=== PATIENT | female | born 1970 | race African-American/Black ===

== ENCOUNTER 2017-02-23 13:23 | Inpatient (IN) | payer OTHER ==
[2017-02-23 13:49] VITALS: BMI 29.8
--- NOTE | 2017-02-23 14:18 | HP ---
COWS - Scale Resting Pulse: 0= [place] 80 or Below Sweatin= Chills/Flushing Restless Observation: 1= Difficult to Sit Still Pupil Size: 0= Normal to Room Light Bone or Joint Aches: 1= Mild Discomfort Runny Nose/ Eye Tearin= Nasal Congestion GI Upset > 30mins: 1= Stomach Cramp Tremor Observation: 1= Tremor [place], Not Seen Yawning Observation: 1= 1-2x During Session Anxiety or Irritability: 1=Feels Anxious/Irritable Goose Flesh Skin: 0=Smooth Skin COWS Score: 8 CIWA Score - CIWA Score Nausea/Vomitin-Mild Nausea/No Vomiting Muscle Tremors: 4-Moderate,w/Arms Extend Anxiety: 3 Agitation: 1-Slight > Activity Paroxysmal Sweats: 1-Minimal Palms Moist Orientation: 1-Uncertain about Date Tacttile Disturbances: 1-Very Mild Itch/Numbness Auditory Disturbances: 1-Very Mild Visual Disturbances: 1-Very Mild Sensitivity Headache: 2-Mild CIWA-Ar Total Score: 16 Admission ROS [facility] - HPI Chief Complaint: I'm tired, I need to stop Allergies/Adverse Reactions: Allergies Allergy/AdvReac Type Severity Reaction Status Date / Time lisinopril Allergy Mild Swelling Verified 02/23/17 14:15 History of Present Illness: 46 yo woman here for detox from alcohol and percocet dependence. Previously here in 2013 - did well but relapsed a year ago. One alcohol related seizure years ago, does have black outs. Exam Limitations: Clinical Condition - Ebola screening Have you traveled outside of the country in the last 21 days: No Have you had contact with anyone from an Ebola affected area: No Have you been sick,other than usual withdrawal symptoms: No Do you have a fever: No - Review of Systems Constitutional: Loss of Appetite, Malaise EENT: reports: Blurred Vision, Nose Congestion Respiratory: reports: No Symptoms reported Cardiac: reports: No Symptoms Reported GI: reports: Nausea, Poor Appetite, Indigestion : reports: Dysuria Musculoskeletal: reports: Back Pain, Muscle Pain Integumentary: reports: No Symptoms Reported Neuro: reports: Headache Endocrine: reports: No Symptoms Reported Psychiatric: reports: Judgement Intact, Mood/Affect Appropiate, Anxious Other Systems: Reviewed and Negative Patient History - Patient Medical History Hx Anemia: No Hx Asthma: No Hx Chronic Obstructive Pulmonary Disease (COPD): No Hx Cancer: No Hx Cardiac Disorders: No Hx Congestive Heart Failure: No Hx Hypertension: No Hx Hypercholesterolemia: No Hx Pacemaker: No HX Cerebrovascular Accident: No Hx Seizures: Yes (years ago relate to Alcohol) Hx Dementia: No Hx Diabetes: No Hx Gastrointestinal Disorders: Yes (GERD) Hx Liver Disease: No Hx Genitourinary Disorders: No Hx Sexually Transmitted Disorders: No Hx Renal Disease (ESRD): No Hx Thyroid Disease: No Hx Human Immunodeficiency Virus (HIV): No Hx Hepatitis C: No Hx Depression: Yes (past history) Hx Suicide Attempt: No Hx Schizophrenia: No Other Medical History: eczema - Patient Surgical History Past Surgical History: Yes Hx Neurologic Surgery: No Hx Cataract Extraction: No Hx Cardiac Surgery: No Hx Lung Surgery: No Hx Breast Surgery: No Hx Breast Biopsy: No Hx Abdominal Surgery: No Hx Appendectomy: No Hx Cholecystectomy: No Hx Genitourinary Surgery: No Hx Section: No Hx Orthopedic Surgery: Yes (left knee arthroscopy) Anesthesia Reaction: No - PPD History Previous Implant?: Yes Documented Results: Negative w/proof Date: 07/14/12 Results: 0 mm PPD to be Administered?: Yes - Reproductive History Patient is a Female of Child Bearing Age (11 -55 yrs old): Yes Last Menstrual Period: 01/02/12 Patient : No - Smoking Cessation Smoking history: Current every day smoker Have you smoked in the past 12 months: Yes Aproximately how many cigarettes per day: 6 Hx Chewing Tobacco Use: No Initiated information on smoking cessation: Yes 'Breaking Loose' booklet given: 02/23/17 (give on floor) - Substance & Tx. History Hx Alcohol Use: Yes Hx Substance Use: Yes Substance Use Type: Alcohol, Cocaine, Opiates Hx Substance Use Treatment: Yes (detox, rehab) - Substances Abused percocet Route: Oral Frequency: Daily Amount used: ten 5mg pills Age of first use: 45 Date of Last Use: 02/23/17 Cocaine Route: Smoking Frequency: Daily Amount used: 1gm Age of first use: 45 Date of Last Use: 02/22/17 Alcohol Route: Oral Frequency: Daily Amount used: 12 pack of 16oz beer; 1/2 - 1 gallon [place] Age of first use: 16 Date of Last Use: 02/23/17 Family Disease History - Family Disease History Family Disease History: Diabetes: Father (, etoh), Heart Disease: Mother (, etoh/drugs), Other: Father, Mother, Brother (1 -DC ) , Sister (2 - living - one with HTN), Daughter (age 23 - healthy) Admission Physical Exam [facility] - Vital Signs Vital Signs: Vital Signs - 24 hr 02/23/17 13:47 Temperature 96 F L Pulse Rate 77 Respiratory 20 Rate Blood Pressure 138/90 - Physical General Appearance: Yes: Nourished, Appropriately Dressed, Moderate Distress, Anxious HEENTM: Yes: Hearing grossly Normal, Normal ENT Inspection, Normocephalic, Normal Voice, Pharynx Normal Respiratory: Yes: Normal Breath Sounds, No Respiratory Distress Neck: Yes: No masses,lesions,Nodules, Supple Breast: Yes: Breast Exam Deferred Cardiology: Yes: Regular Rhythm, Regular Rate Abdominal: Yes: Soft Genitourinary: Yes: Dysuria Back: Yes: Normal Inspection Musculoskeletal: Yes: full range of Motion, Gait Steady Neurological: Yes: Alert, Normal Mood/Affect, Normal Response Integumentary: Yes: Normal Color, Warm Lymphatic: Yes: Within Normal Limits - Diagnostic (1) Uncomplicated opioid dependence Current Visit: Yes Status: Chronic (2) Alcohol dependence with uncomplicated withdrawal Current Visit: Yes Status: Chronic (3) Cocaine dependence Current Visit: Yes Status: Chronic Qualifiers: Substance use status: uncomplicated Qualified Code(s): F14.20 - Cocaine dependence, uncomplicated (4) Eczema Current Visit: Yes Status: Chronic Qualifiers: Eczema type: other Qualified Code(s): L30.8 - Other specified dermatitis (5) GERD (gastroesophageal reflux disease) Current Visit: Yes Status: Chronic Qualifiers: Esophagitis presence: esophagitis presence not specified Qualified Code(s): K21.9 - Gastro-esophageal reflux disease without esophagitis (6) HTN (hypertension) Current Visit: Yes Status: Chronic Qualifiers: Hypertension type: essential hypertension Qualified Code(s): I10 - Essential (primary) hypertension (7) History of seizure Current Visit: Yes Status: Chronic Comment: years ago, alcohol related Cleared for Admission [facility] - Detox or Rehab [facility] Level of Care: Medically Managed Detox Regimen/Protocol: Methadone/Librium [facility] Breath Alcohol Content Breath Alcohol Content: 0.030 Urine Pregancy Test - Result Urine Test Results: Negative- NO Line Present Urine Drug Screen - Results Drug Screen Negative: No Urine Drug Screen Results: SHONA-Cocaine, OXY-Oxycodone
[2017-02-23] MEDS ORDERED: chlordiazePOXIDE HCL 25 MG CAPSULE PO PRN (14:29)
[2017-02-23] MEDS ORDERED: IBUPROFEN 400 MG TABLET (FP) PO PRN (14:29)
[2017-02-23] MEDS ORDERED: MAGNESIUM CITRATE 300 ML BOTTLE PO PRN (14:29)
[2017-02-23] MEDS ORDERED: guaiFENesin/D-METHORPHAN HB 10 ML UNIT-DOSE CUPS PO PRN (14:29)
[2017-02-23] MEDS ORDERED: hydrOXYzine PAMOATE 50 MG CAPSULE (FP) PO PRN (14:29)
[2017-02-23] MEDS ORDERED: MENTHOL/PHENOL 1 EACH UD MM PRN (14:29)
[2017-02-23] MEDS ORDERED: ACETAMINOPHEN 325 MG TABLET (FP) PO PRN (14:29)
[2017-02-23] MEDS ORDERED: MAGNESIUM HYDROX 2400MG/30ML ORAL SUSPENSION 30 ML CUP PO PRN (14:29)
[2017-02-23] MEDS ORDERED: LOPERAMIDE HCL 2 MG CAPSULE PO PRN (14:29)
[2017-02-23] MEDS ORDERED: P-EPHED 60MG/TRIPROLIDI 2.5MG TABLET PO PRN (14:29)
[2017-02-23] MEDS ORDERED: chlordiazePOXIDE HCL 25 MG CAPSULE PO ONE (14:29)
[2017-02-23] MEDS ORDERED: COLLOIDAL OATMEAL 1 BAR EACH TP PRN (14:31)
[2017-02-23] MEDS ORDERED: METHADONE HCL 10 MG TABLET (FOR DETOX USE ONLY) PO ONE ×3 (15:15→23:00)
[2017-02-23] MEDS: chlordiazePOXIDE HCL 25 MG CAPSULE PO SCH ×2 (17:48→22:26)
[2017-02-23] MEDS: NICOTINE POLACRILEX 4 MG GUM BUC PRN (19:25)
[2017-02-23] MEDS: THIAMINE HCL 100 MG TABLET (FP) PO SCH (22:27)
[2017-02-23] MEDS: diphenhydrAMINE HCL 50 MG CAPSULE PO PRN (22:28)
[2017-02-23 22:30] LABS: URINE APPEARANCE CLEAR; URINE BILIRUBIN NEGATIVE (NEGATIVE); URINE BLOOD NEGATIVE (NEGATIVE); URINE COLOR STRAW; URINE GLUCOSE (UA) NEGATIVE (NEGATIVE); URINE KETONE NEGATIVE (NEGATIVE); URINE LEUK ESTERASE NEGATIVE (NEGATIVE); URINE NITRITE NEGATIVE (NEGATIVE); URINE PROTEIN NEGATIVE (NEGATIVE); URINE UROBILINOGEN NEGATIVE mg/dL (0.2-1.0)
[2017-02-24] MEDS: chlordiazePOXIDE HCL 25 MG CAPSULE PO SCH ×4 (06:08→22:08)
[2017-02-24 09:52] LABS: MCH 28.2 pg (25.7-33.7); MCHC 32.7 g/dl (32.0-36.0); MEAN CELL VOLUME 86.3 fl (80-96); MEAN PLT VOLUME 11.3 fl (7.5-11.1); PLATELET COUNT 146 K/MM3 (134-434); RDW 13.6 % (11.6-15.6); WHITE BLOOD COUNT 8.7 K/mm3 (4.0-10.0)
--- NOTE | 2017-02-24 09:55 | EKG ---
Test Reason : Blood Pressure : / mmHG Vent. Rate : 060 BPM Atrial Rate : 060 BPM P-R Int : 112 ms QRS Dur : 086 ms QT Int : 446 ms P-R-T Axes : 029 046 027 degrees QTc Int : 446 ms NORMAL SINUS RHYTHM NORMAL ECG NO PREVIOUS ECGS AVAILABLE Confirmed by MD EMANI, KENYON ([id number]) on 02/24/2017 9:54:55 AM Referred By: Confirmed By:KENYON JOAQUIN MD
[2017-02-24] MEDS ORDERED: METHADONE HCL 10 MG TABLET (FOR DETOX USE ONLY) PO SCH (10:00)
[2017-02-24] MEDS: PRENATAL VITAMINS W/ FOLIC ACID TABLET (FP) PO SCH (10:06)
[2017-02-24] MEDS: PANTOPRAZOLE 20 MG TABLET (FP) PO SCH (10:06)
[2017-02-24] MEDS: METOPROLOL TARTRATE 25 MG TABLET (FP) PO SCH (10:06)
[2017-02-24] MEDS: NICOTINE POLACRILEX 4 MG GUM BUC PRN (10:10)
[2017-02-24 10:31] LABS: ALBUMIN 3.7 g/dl (3.4-5.0); ALK PHOS 61 U/L (45-117); ANION GAP 13 (8-16); BILIRUBIN,TOTAL 0.2 mg/dL (0.2-1.0); CALCIUM 8.9 mg/dL (8.5-10.1); CO2 24 mmol/L (21-32); CREATININE 0.6 mg/dL (0.55-1.02); GLUCOSE,RANDOM 136 mg/dL (74-106); SGOT/AST 18 U/L (15-37); SGPT/ALT 21 U/L (12-78); TOT PROT 6.6 g/dl (6.4-8.2)
--- NOTE | 2017-02-24 16:35 | PN ---
[facility] CIWA - CIWA Score Nausea/Vomitin Muscle Tremors: 3 Anxiety: 3 Agitation: 3 Paroxysmal Sweats: 3 Orientation: 0-Oriented Tacttile Disturbances: 0-None Auditory Disturbances: 0-None Visual Disturbances: 0-None Headache: 0-None Present CIWA-Ar Total Score: 14 S COWS - Scale Resting Pulse: 0= [place] 80 or Below Sweatin= Chills/Flushing Restless Observation: 1= Difficult to Sit Still Pupil Size: 0= Normal to Room Light Bone or Joint Aches: 1= Mild Discomfort Runny Nose/ Eye Tearin= Nasal Congestion GI Upset > 30mins: 2= Nausea/Diarrhea Tremor Observation of Outstretched Hands: 2= Slight Tremor Visible Yawning Observation: 1= 1-2x During Session Anxiety or Irritability: 2=Irritable/Anxious Goose Flesh Skin: 0=Smooth Skin COWS Score: 11 [facility] Progress Note (SOAP) Subjective: Sweating,interrupted sleep,restless,tremors,anxiety Objective: 02/24/17 16:31 Vital Signs - 8 hr 02/24/17 02/24/17 10:00 14:29 Temperature 97.5 F L 97.1 F L Pulse Rate 65 57 L Respiratory 18 20 Rate Blood Pressure 123/75 110/82 Laboratory Tests 02/23/17 02/24/17 02/24/17 22:00 07:50 07:50 WBC 8.7 RBC 4.94 Hgb 13.9 D Hct 42.6 D MCV 86.3 MCH 28.2 MCHC 32.7 RDW 13.6 Plt Count 146 MPV 11.3 H Sodium 141 Potassium 3.6 Chloride 104 Carbon Dioxide 24 Anion Gap 13 BUN 15 Creatinine 0.6 Creat Clearance w eGFR > 60 Random Glucose 136 H Calcium 8.9 Total Bilirubin 0.2 AST 18 D ALT 21 D Alkaline Phosphatase 61 Total Protein 6.6 Albumin 3.7 Urine Color Straw Urine Appearance Clear Urine pH 6.0 Ur Specific [place] <= 1.005 Urine Protein Negative Urine Glucose (UA) Negative Urine Ketones Negative Urine Blood Negative Urine Nitrite Negative Urine Bilirubin Negative Urine Urobilinogen Negative Ur Leukocyte Esterase Negative RPR Titer 02/24/17 07:50 WBC RBC Hgb Hct MCV MCH MCHC RDW Plt Count MPV Sodium Potassium Chloride Carbon Dioxide Anion Gap BUN Creatinine Creat Clearance w eGFR Random Glucose Calcium Total Bilirubin AST ALT Alkaline Phosphatase Total Protein Albumin Urine Color Urine Appearance Urine pH Ur Specific [place] Urine Protein Urine Glucose (UA) Urine Ketones Urine Blood Urine Nitrite Urine Bilirubin Urine Urobilinogen Ur Leukocyte Esterase RPR Titer Nonreactive labs noted Assessment: 02/24/17 16:34 Withdrawal sx. Plan: Continue detox
[2017-02-24] MEDS: MAG HYDROX/AL HYDROX/SIMETH 30 ML UNIT-DOSE CUP PO PRN (17:37)
[2017-02-24] MEDS: THIAMINE HCL 100 MG TABLET (FP) PO SCH (22:08)
[2017-02-24] MEDS: diphenhydrAMINE HCL 50 MG CAPSULE PO PRN (22:09)
[2017-02-25] MEDS: chlordiazePOXIDE HCL 25 MG CAPSULE PO SCH ×2 (05:13→10:12)
--- NOTE | 2017-02-25 09:12 | CONSULT ---
[facility] Psychiatric Consult - Data Date of interview: 02/25/17 Admission source: [facility] Identifying data: This is 46 years old female with psychiatric hospitalization history intoxicated withAlcohol and Cocaine Substance Abuse History: Smoking history: Current every day smoker. Have you smoked in the past 12 months: Yes. Aproximately how many cigarettes per day: 6. Hx Chewing Tobacco Use: No. Initiated information on smoking cessation: Yes. 'Breaking Loose' booklet given: 02/23/17 (give on floor). - Substance & Tx. History. Hx Alcohol Use: Yes. Hx Substance Use: Yes. Substance Use Type: Alcohol, Cocaine, Opiates. Hx Substance Use Treatment: Yes (detox, rehab). - Substances Abused. percocet. Route: Oral. Frequency: Daily. Amount used: ten 5mg pills. Age of first use: 45. Date of Last Use: 02/23/17. Cocaine. Route: Smoking. Frequency: Daily. Amount used: 1gm. Age of first use: 45. Date of Last Use: 02/22/17. Alcohol. Route: Oral. Frequency: Daily. Amount used: 12 pack of 16oz beer; 1/2 - 1 gallon [place]. Age of first use: 16. Date of Last Use: 02/23/17 Medical History: Eczema history, GERD, HTN, Seizure history Psychiatric History: Patient reports unclear history of psychiatric admission on mopre then 5 years ago, reports no0 medications taking prior to admission. Physical/Sexual Abuse/Trauma History: Denies Additional Comment: Observation. Detox Unit Care Protocol Mental Status Exam - Mental Status Exam Alert and Oriented to: Person Cognitive Function: Fair Patient Appearance: Unkempt Mood: Sad Affect: Flat Patient Behavior: Sedated Speech Pattern: Delayed Voice Loudness: Mildly Soft/Quiet Thought Process: Circumstantial Thought Disorder: Being Controlled Hallucinations: Denies Suicidal Ideation: Denies Homicidal Ideation: Denies Insight/Judgement: Fair Sleep: Difficulty falling asleep Appetite: Fair Muscle strength/Tone: Mild Hypotonicity Gait/Station: Shuffling Additional Comments: Observation. Detox Unit Care Protocol Psychiatric Findings - Problem List ([place] 1, 2,3) (1) Alcohol dependence with uncomplicated withdrawal Current Visit: Yes Status: Chronic (2) Cocaine dependence Current Visit: Yes Status: Chronic Qualifiers: Substance use status: uncomplicated Qualified Code(s): F14.20 - Cocaine dependence, uncomplicated (3) Drug-induced mood disorder Current Visit: Yes Status: Suspected - Initial Treatment Plan Initial Treatment Plan: Observation. Detox Unit Care Protocol
[2017-02-25] MEDS: METHADONE HCL 5 MG TABLET (FOR DETOX USE ONLY) PO SCH (10:12)
[2017-02-25] MEDS: METOPROLOL TARTRATE 25 MG TABLET (FP) PO SCH (10:12)
[2017-02-25] MEDS: PRENATAL VITAMINS W/ FOLIC ACID TABLET (FP) PO SCH (10:12)
[2017-02-25] MEDS: NICOTINE POLACRILEX 4 MG GUM BUC PRN ×2 (10:15→12:48)
--- NOTE | 2017-02-25 10:38 | PN ---
S CIWA - CIWA Score Nausea/Vomitin-No Nausea/No Vomiting Muscle Tremors: 3 Anxiety: 3 Agitation: 2 Paroxysmal Sweats: 3 Orientation: 0-Oriented Tacttile Disturbances: 1-Very Mild Itch/Numbness Auditory Disturbances: 0-None Visual Disturbances: 0-None Headache: 0-None Present CIWA-Ar Total Score: 12 [facility] COWS - Scale Resting Pulse: 0= [place] 80 or Below Sweatin=Flushed/Facial Moisture Restless Observation: 1= Difficult to Sit Still Pupil Size: 0= Normal to Room Light Bone or Joint Aches: 1= Mild Discomfort Runny Nose/ Eye Tearin= Runny Nose/Eyes GI Upset > 30mins: 2= Nausea/Diarrhea Tremor Observation of Outstretched Hands: 2= Slight Tremor Visible Yawning Observation: 1= 1-2x During Session Anxiety or Irritability: 2=Irritable/Anxious Goose Flesh Skin: 0=Smooth Skin COWS Score: 13 S Progress Note (SOAP) Subjective: Anxiety,tremors,sweating,interrupted sleep,muscle aches. Objective: 02/25/17 10:37 Vital Signs - 8 hr 02/25/17 02/25/17 02/25/17 03:30 06:00 09:39 Temperature 97.7 F 96.8 F L Pulse Rate 56 L 69 Respiratory 18 18 16 Rate Blood Pressure 137/87 131/71 Laboratory Last Values WBC 8.7 K/mm3 (4.0-10.0) 02/24/17 07:50 RBC 4.94 M/mm3 (3.60-5.2) 02/24/17 07:50 Hgb 13.9 GM/dL (10.7-15.3) D 02/24/17 07:50 Hct 42.6 % (32.4-45.2) D 02/24/17 07:50 MCV 86.3 fl (80-96) 02/24/17 07:50 MCH 28.2 pg (25.7-33.7) 02/24/17 07:50 MCHC 32.7 g/dl (32.0-36.0) 02/24/17 07:50 RDW 13.6 % (11.6-15.6) 02/24/17 07:50 Plt Count 146 K/MM3 (134-434) 02/24/17 07:50 MPV 11.3 fl (7.5-11.1) H 02/24/17 07:50 Sodium 141 mmol/L (136-145) 02/24/17 07:50 Potassium 3.6 mmol/L (3.5-5.1) 02/24/17 07:50 Chloride 104 mmol/L (98-107) 02/24/17 07:50 Carbon Dioxide 24 mmol/L (21-32) 02/24/17 07:50 Anion Gap 13 (8-16) 02/24/17 07:50 BUN 15 mg/dL (7-18) 02/24/17 07:50 Creatinine 0.6 mg/dL (0.55-1.02) 02/24/17 07:50 Creat Clearance w eGFR > 60 (>60) 02/24/17 07:50 Random Glucose 136 mg/dL (74-106) H 02/24/17 07:50 Calcium 8.9 mg/dL (8.5-10.1) 02/24/17 07:50 Total Bilirubin 0.2 mg/dL (0.2-1.0) 02/24/17 07:50 AST 18 U/L (15-37) D 02/24/17 07:50 ALT 21 U/L (12-78) D 02/24/17 07:50 Alkaline Phosphatase 61 U/L (45-117) 02/24/17 07:50 Total Protein 6.6 g/dl (6.4-8.2) 02/24/17 07:50 Albumin 3.7 g/dl (3.4-5.0) 02/24/17 07:50 Urine Color Straw 02/23/17 22:00 Urine Appearance Clear 02/23/17 22:00 Urine pH 6.0 (5.0-8.0) 02/23/17 22:00 Ur Specific [place] <= 1.005 (1.005-1.025) 02/23/17 22:00 Urine Protein Negative (NEGATIVE) 02/23/17 22:00 Urine Glucose (UA) Negative (NEGATIVE) 02/23/17 22:00 Urine Ketones Negative (NEGATIVE) 02/23/17 22:00 Urine Blood Negative (NEGATIVE) 02/23/17 22:00 Urine Nitrite Negative (NEGATIVE) 02/23/17 22:00 Urine Bilirubin Negative (NEGATIVE) 02/23/17 22:00 Urine Urobilinogen Negative mg/dL (0.2-1.0) 02/23/17 22:00 Ur Leukocyte Esterase Negative (NEGATIVE) 02/23/17 22:00 RPR Titer Nonreactive (NONREACTIVE) 02/24/17 07:50 labs noted Assessment: 02/25/17 10:38 Withdrawal sx. Plan: Continue detox
[2017-02-25] MEDS: PANTOPRAZOLE 20 MG TABLET (FP) PO SCH (12:49)
[2017-02-25] MEDS: ONDANSETRON *ODT* 4 MG TABLET SL PRN (15:00)
[2017-02-25] MEDS: chlordiazePOXIDE 5 MG CAPSULE PO SCH ×2 (17:40→22:09)
[2017-02-25] MEDS: THIAMINE HCL 100 MG TABLET (FP) PO SCH (22:10)
[2017-02-25] MEDS: diphenhydrAMINE HCL 50 MG CAPSULE PO PRN (22:10)
[2017-02-25] MEDS: MAG HYDROX/AL HYDROX/SIMETH 30 ML UNIT-DOSE CUP PO PRN (22:10)
[2017-02-26] MEDS: chlordiazePOXIDE 5 MG CAPSULE PO SCH ×2 (05:19→10:10)
[2017-02-26] MEDS: NICOTINE POLACRILEX 4 MG GUM BUC PRN (09:38)
--- NOTE | 2017-02-26 09:56 | PN ---
[facility] Progress Note (SOAP) Subjective: nausa, sweats, interrutped sleep, anxiety, tremors Objective: 02/26/17 09:55 Vital Signs - 8 hr 02/26/17 02/26/17 03:30 06:33 Temperature 97.7 F Pulse Rate 68 Respiratory 18 16 Rate Blood Pressure 108/64 Laboratory Tests 02/23/17 02/24/17 02/24/17 22:00 07:50 07:50 WBC 8.7 RBC 4.94 Hgb 13.9 D Hct 42.6 D MCV 86.3 MCH 28.2 MCHC 32.7 RDW 13.6 Plt Count 146 MPV 11.3 H Sodium 141 Potassium 3.6 Chloride 104 Carbon Dioxide 24 Anion Gap 13 BUN 15 Creatinine 0.6 Creat Clearance w eGFR > 60 Random Glucose 136 H Calcium 8.9 Total Bilirubin 0.2 AST 18 D ALT 21 D Alkaline Phosphatase 61 Total Protein 6.6 Albumin 3.7 Urine Color Straw Urine Appearance Clear Urine pH 6.0 Ur Specific [place] <= 1.005 Urine Protein Negative Urine Glucose (UA) Negative Urine Ketones Negative Urine Blood Negative Urine Nitrite Negative Urine Bilirubin Negative Urine Urobilinogen Negative Ur Leukocyte Esterase Negative RPR Titer 02/24/17 07:50 WBC RBC Hgb Hct MCV MCH MCHC RDW Plt Count MPV Sodium Potassium Chloride Carbon Dioxide Anion Gap BUN Creatinine Creat Clearance w eGFR Random Glucose Calcium Total Bilirubin AST ALT Alkaline Phosphatase Total Protein Albumin Urine Color Urine Appearance Urine pH Ur Specific [place] Urine Protein Urine Glucose (UA) Urine Ketones Urine Blood Urine Nitrite Urine Bilirubin Urine Urobilinogen Ur Leukocyte Esterase RPR Titer Nonreactive Assessment: 02/26/17 09:55 withdrawal sx Plan: cont detox, fluids
[2017-02-26] MEDS: METOPROLOL TARTRATE 25 MG TABLET (FP) PO SCH (10:10)
[2017-02-26] MEDS: PRENATAL VITAMINS W/ FOLIC ACID TABLET (FP) PO SCH (10:10)
[2017-02-26] MEDS: METHADONE HCL 5 MG TABLET (FOR DETOX USE ONLY) PO SCH (10:10)
[2017-02-26] MEDS: PANTOPRAZOLE 20 MG TABLET (FP) PO SCH (10:10)
[2017-02-26] MEDS: chlordiazePOXIDE HCL 10 MG CAPSULE PO SCH ×2 (18:00→22:09)
[2017-02-26] MEDS: MAG HYDROX/AL HYDROX/SIMETH 30 ML UNIT-DOSE CUP PO PRN (18:00)
[2017-02-26] MEDS: THIAMINE HCL 100 MG TABLET (FP) PO SCH (22:09)
[2017-02-26] MEDS: diphenhydrAMINE HCL 50 MG CAPSULE PO PRN (22:10)
[2017-02-27] MEDS: chlordiazePOXIDE HCL 10 MG CAPSULE PO SCH ×2 (07:04→10:05)
[2017-02-27] MEDS: NICOTINE POLACRILEX 4 MG GUM BUC PRN (09:39)
--- NOTE | 2017-02-27 09:53 | PN ---
[facility] Progress Note (SOAP) Subjective: nausea, sweats, interrupted sleep, anxiety, fatigue, body aches, rash on face nd arms Objective: 02/27/17 09:51 Vital Signs - 24 hr 02/26/17 02/26/17 02/26/17 10:22 14:04 17:43 Temperature 97.3 F L 98.1 F 97.9 F Pulse Rate 63 71 66 Respiratory 18 20 16 Rate Blood Pressure 132/78 135/76 130/85 02/26/17 02/27/17 02/27/17 21:57 03:30 06:18 Temperature 97.9 F 97.9 F Pulse Rate 62 64 Respiratory 18 18 16 Rate Blood Pressure 129/86 135/78 papular rash right wrist area, erythem in butterfly distriution on face Laboratory Tests 02/23/17 02/24/17 02/24/17 22:00 07:50 07:50 WBC 8.7 RBC 4.94 Hgb 13.9 D Hct 42.6 D MCV 86.3 MCH 28.2 MCHC 32.7 RDW 13.6 Plt Count 146 MPV 11.3 H Sodium 141 Potassium 3.6 Chloride 104 Carbon Dioxide 24 Anion Gap 13 BUN 15 Creatinine 0.6 Creat Clearance w eGFR > 60 Random Glucose 136 H Calcium 8.9 Total Bilirubin 0.2 AST 18 D ALT 21 D Alkaline Phosphatase 61 Total Protein 6.6 Albumin 3.7 Urine Color Straw Urine Appearance Clear Urine pH 6.0 Ur Specific [place] <= 1.005 Urine Protein Negative Urine Glucose (UA) Negative Urine Ketones Negative Urine Blood Negative Urine Nitrite Negative Urine Bilirubin Negative Urine Urobilinogen Negative Ur Leukocyte Esterase Negative RPR Titer 02/24/17 07:50 WBC RBC Hgb Hct MCV MCH MCHC RDW Plt Count MPV Sodium Potassium Chloride Carbon Dioxide Anion Gap BUN Creatinine Creat Clearance w eGFR Random Glucose Calcium Total Bilirubin AST ALT Alkaline Phosphatase Total Protein Albumin Urine Color Urine Appearance Urine pH Ur Specific [place] Urine Protein Urine Glucose (UA) Urine Ketones Urine Blood Urine Nitrite Urine Bilirubin Urine Urobilinogen Ur Leukocyte Esterase RPR Titer Nonreactive Assessment: 02/27/17 09:52 withdrawal sx, rash, etiology unclear, hyperglycemia Plan: cont detox, lotrison, symptomatic relief of withdrawal , no concentrated sweets diet
[2017-02-27] MEDS ORDERED: METHADONE HCL 10 MG TABLET (FOR DETOX USE ONLY) PO SCH (10:00)
[2017-02-27] MEDS: PRENATAL VITAMINS W/ FOLIC ACID TABLET (FP) PO SCH (10:05)
[2017-02-27] MEDS: ONDANSETRON *ODT* 4 MG TABLET SL PRN (10:05)
[2017-02-27] MEDS: METOPROLOL TARTRATE 25 MG TABLET (FP) PO SCH (10:05)
[2017-02-27] MEDS: cloNIDine HCL 0.1 MG TABLET PO SCH ×2 (10:07→22:04)
[2017-02-27] MEDS: NAPROXEN 500 MG TABLET (FP) PO SCH ×2 (10:07→22:03)
[2017-02-27] MEDS: PANTOPRAZOLE 40 MG TABLET (FP) PO SCH (10:07)
[2017-02-27] MEDS: CLOTRIMAZOLE/BETAMET DIPROP TOPICAL CREAM 45 GM TUBE TP SCH ×2 (12:45→22:06)
[2017-02-27] MEDS: GABAPENTIN 100 MG CAPSULE (FP) PO SCH ×2 (14:34→22:03)
[2017-02-27] MEDS: CYCLOBENZAPRINE HCL 10 MG TABLET (FP) PO SCH ×2 (14:34→22:03)
[2017-02-27] MEDS: MAG HYDROX/AL HYDROX/SIMETH 30 ML UNIT-DOSE CUP PO PRN (14:39)
[2017-02-27] MEDS ORDERED: ZOLPIDEM TARTRATE 10 MG TABLET (PARK CARE ONLY) PO PRN (22:00)
[2017-02-27] MEDS: THIAMINE HCL 100 MG TABLET (FP) PO SCH (22:04)
[2017-02-28] MEDS: GABAPENTIN 100 MG CAPSULE (FP) PO SCH (05:31)
[2017-02-28] MEDS: CYCLOBENZAPRINE HCL 10 MG TABLET (FP) PO SCH (05:32)
[2017-02-28] MEDS ORDERED: METHADONE HCL 5 MG TABLET (FOR DETOX USE ONLY) PO SCH (06:00)
--- NOTE | 2017-02-28 08:31 | DS ---
[facility] Detox Discharge Summary Admission Date: 02/23/17 Discharge Date: 02/28/17 - History Present History: Alcohol Dependence, Cocaine Dependence Pertinent Past History: GERD, nicotine dependence, anxiety, insomnia, depression - Physical Exam Results Vital Signs: Vital Signs Temperature 97.6 F 02/28/17 06:40 Pulse Rate 57 L 02/28/17 06:40 Respiratory Rate 16 02/28/17 06:40 Blood Pressure 105/67 02/28/17 06:40 O2 Sat by Pulse Oximetry (%) Laboratory Tests 02/23/17 02/24/17 02/24/17 22:00 07:50 07:50 WBC 8.7 RBC 4.94 Hgb 13.9 D Hct 42.6 D MCV 86.3 MCH 28.2 MCHC 32.7 RDW 13.6 Plt Count 146 MPV 11.3 H Sodium 141 Potassium 3.6 Chloride 104 Carbon Dioxide 24 Anion Gap 13 BUN 15 Creatinine 0.6 Creat Clearance w eGFR > 60 Random Glucose 136 H Calcium 8.9 Total Bilirubin 0.2 AST 18 D ALT 21 D Alkaline Phosphatase 61 Total Protein 6.6 Albumin 3.7 Urine Color Straw Urine Appearance Clear Urine pH 6.0 Ur Specific [place] <= 1.005 Urine Protein Negative Urine Glucose (UA) Negative Urine Ketones Negative Urine Blood Negative Urine Nitrite Negative Urine Bilirubin Negative Urine Urobilinogen Negative Ur Leukocyte Esterase Negative RPR Titer 02/24/17 07:50 WBC RBC Hgb Hct MCV MCH MCHC RDW Plt Count MPV Sodium Potassium Chloride Carbon Dioxide Anion Gap BUN Creatinine Creat Clearance w eGFR Random Glucose Calcium Total Bilirubin AST ALT Alkaline Phosphatase Total Protein Albumin Urine Color Urine Appearance Urine pH Ur Specific [place] Urine Protein Urine Glucose (UA) Urine Ketones Urine Blood Urine Nitrite Urine Bilirubin Urine Urobilinogen Ur Leukocyte Esterase RPR Titer Nonreactive - Medication Discharge Medications: Ambulatory Orders Metoprolol Tartrate [Lopressor -] 25 mg PO DAILY 02/23/17 Omeprazole 20 mg PO DAILY 02/23/17 - Diagnosis (1) Alcohol dependence with uncomplicated withdrawal Current Visit: Yes Status: Chronic (2) Cocaine dependence Current Visit: Yes Status: Chronic Qualifiers: Substance use status: uncomplicated Qualified Code(s): F14.20 - Cocaine dependence, uncomplicated (3) Eczema Current Visit: Yes Status: Chronic Qualifiers: Eczema type: other Qualified Code(s): L30.8 - Other specified dermatitis (4) GERD (gastroesophageal reflux disease) Current Visit: Yes Status: Chronic Qualifiers: Esophagitis presence: esophagitis presence not specified Qualified Code(s): K21.9 - Gastro-esophageal reflux disease without esophagitis (5) HTN (hypertension) Current Visit: Yes Status: Chronic Qualifiers: Hypertension type: essential hypertension Qualified Code(s): I10 - Essential (primary) hypertension (6) Drug-induced mood disorder Current Visit: Yes Status: Acute (7) Opioid dependence with withdrawal Current Visit: Yes Status: Acute - AMA Did Patient Leave Against Medical Advice: No
[2017-02-28] MEDS: PANTOPRAZOLE 40 MG TABLET (FP) PO SCH (10:26)
[2017-02-28] MEDS: NAPROXEN 500 MG TABLET (FP) PO SCH (10:26)
[2017-02-28] MEDS: METOPROLOL TARTRATE 25 MG TABLET (FP) PO SCH (10:26)
[2017-02-28] MEDS: cloNIDine HCL 0.1 MG TABLET PO SCH (10:26)
[2017-02-28] MEDS: PRENATAL VITAMINS W/ FOLIC ACID TABLET (FP) PO SCH (10:26)
[2017-02-28] MEDS: CLOTRIMAZOLE/BETAMET DIPROP TOPICAL CREAM 45 GM TUBE TP SCH (10:27)
[2017-02-28] MEDS: NICOTINE POLACRILEX 4 MG GUM BUC PRN (10:30)
[2017-02-28 12:56] VITALS: BP 109/57; PULSE 83; TEMP 97.7
== END 2017-02-28 12:33 | disposition home or self-care (01) | DRG 773 ==
LOC: YASAS 13:23 → Y6N 14:57
PROVIDERS: ADMIT Internal Medicine Addiction Medicine; ATTEND Internal Medicine Addiction Medicine
PROC: HZ2ZZZZ Detoxification Services for Substance Abuse Treatment (ICD-10-PCS; principal; 2017-02-23)
DX: F11.23 Opioid dependence with withdrawal (principal); F10.230 Alcohol dependence with withdrawal, uncomplicated; F14.20 Cocaine dependence, uncomplicated; F19.24 Other psychoactive substance dependence with psychoactive substance-induced mood disorder; F32.9 Major depressive disorder, single episode, unspecified; I10 Essential (primary) hypertension; K21.9 Gastro-esophageal reflux disease without esophagitis; L30.8 Other specified dermatitis; Z86.69 Personal history of other diseases of the nervous system and sense organs
CPT/HCPCS: 36415; 80053; 81003; 85027; 86593; 93005; 93010

== ENCOUNTER 2017-07-19 11:41 | Inpatient (IN) | payer OTHER ==
[2017-07-19 12:45] VITALS: BMI 28.5
--- NOTE | 2017-07-19 13:01 | HP ---
COWS - Scale Resting Pulse: 0= [place] 80 or Below Sweatin= Chills/Flushing Restless Observation: 3= Extraneous Movement Pupil Size: 0= Normal to Room Light Bone or Joint Aches: 4=Acute Joint/Muscle Pain Runny Nose/ Eye Tearin= Nasal Congestion GI Upset > 30mins: 2= Nausea/Diarrhea Tremor Observation: 1= Tremor [place], Not Seen Yawning Observation: 1= 1-2x During Session Anxiety or Irritability: 2=Irritable/Anxious Goose Flesh Skin: 0=Smooth Skin COWS Score: 15 CIWA Score - CIWA Score Nausea/Vomitin-Int. Nausea w/Dry Heave (N/DIARRHEA) Muscle Tremors: 3 Anxiety: 4-Mod. Anxious/Guarded Agitation: 3 Paroxysmal Sweats: 1-Minimal Palms Moist Orientation: 0-Oriented Tacttile Disturbances: 3-Moderate Itch/Numb/Burn Auditory Disturbances: 0-None Visual Disturbances: 0-None Headache: 2-Mild CIWA-Ar Total Score: 20 Admission ROS S - HPI Chief Complaint: WITHDRAWAL SX--NAUSEA/DIARRHEA,FATIGUE, Allergies/Adverse Reactions: Allergies Allergy/AdvReac Type Severity Reaction Status Date / Time lisinopril Allergy Mild Swelling Verified 07/19/17 12:53 Exam Limitations: No Limitations - Ebola screening Have you traveled outside of the country in the last 21 days: No (N) Have you had contact with anyone from an Ebola affected area: No Have you been sick,other than usual withdrawal symptoms: No Do you have a fever: No - Review of Systems Constitutional: Changes in sleep EENT: reports: Blurred Vision (SPOTS), Tearing, Nose Congestion Respiratory: reports: Shortness of Breath (HX ASTHMA), Wheezing Cardiac: reports: Lightheadedness GI: reports: Constipated, Diarrhea, Nausea, Poor Fluid Intake : reports: No Symptoms Reported Musculoskeletal: reports: Back Pain, Joint Pain, Muscle Pain, Other (HX ARTHRITIS) Integumentary: reports: Lesions (HX ECZEMA) Neuro: reports: Headache, Numbness (HANDS), Dizziness Endocrine: reports: No Symptoms Reported Hematology: reports: No Symptoms Reported Psychiatric: reports: Orientated x3, Anxious, Depressed Patient History - Patient Medical History Hx Anemia: No Hx Asthma: No Hx Chronic Obstructive Pulmonary Disease (COPD): No Hx Cancer: No Hx Cardiac Disorders: No Hx Congestive Heart Failure: No Hx Hypertension: Yes (HTN -ON MEDS) Hx Hypercholesterolemia: No Hx Pacemaker: No HX Cerebrovascular Accident: No Hx Seizures: Yes (years ago relate to Alcohol) Hx Dementia: No Hx Diabetes: Yes (STOPPED MED BY PMD--BGM TODAY 96 MG/DL) Hx Gastrointestinal Disorders: Yes (GERD) Hx Liver Disease: No Hx Genitourinary Disorders: No Hx Sexually Transmitted Disorders: No Hx Renal Disease (ESRD): No Hx Thyroid Disease: No Hx Human Immunodeficiency Virus (HIV): No (NEGATIVE HX) Hx Hepatitis C: No Hx Depression: Yes (past history) Hx Suicide Attempt: No (DENIES) Hx Schizophrenia: No - Patient Surgical History Past Surgical History: Yes Hx Neurologic Surgery: No Hx Cataract Extraction: No Hx Cardiac Surgery: No Hx Lung Surgery: No Hx Breast Surgery: No Hx Breast Biopsy: No Hx Abdominal Surgery: No Hx Appendectomy: No Hx Cholecystectomy: No Hx Genitourinary Surgery: No Hx Section: No Hx Orthopedic Surgery: Yes (left knee arthroscopy) Hx Hysterectomy: No Anesthesia Reaction: No - PPD History Previous Implant?: Yes Documented Results: Negative w/proof Date: 02/25/17 Results: 0 mm PPD to be Administered?: No - Reproductive History Patient is a Female of Child Bearing Age (11 -55 yrs old): Yes Last Menstrual Period: 01/02/12 Patient : No - Smoking Cessation Smoking history: Current every day smoker Have you smoked in the past 12 months: Yes Aproximately how many cigarettes per day: 6 Hx Chewing Tobacco Use: No Initiated information on smoking cessation: Yes 'Breaking Loose' booklet given: 07/19/17 - Substance & Tx. History Hx Alcohol Use: Yes Hx Substance Use: Yes Substance Use Type: Alcohol, Heroin - Substances Abused Heroin Route: Inhalation Frequency: Daily Amount used: 4 BAGS Age of first use: 19 Date of Last Use: 07/18/17 Alcohol Route: Oral Frequency: Daily Amount used: 8-10 CANS BEER Age of first use: 16 Date of Last Use: 07/19/17 Crack Route: Smoking Frequency: 3-6 times per week Amount used: 2 BAGS Age of first use: 25 Date of Last Use: 07/18/17 PERCOCET Route: Oral Frequency: Daily Amount used: 8 PILLS Age of first use: 35 Date of Last Use: 07/19/17 Family Disease History - Family Disease History Family Disease History: Diabetes: Father (, etoh), Heart Disease: Mother (, etoh/drugs), Other: Father, Mother, Brother (1 -MT ) , Sister (2 - living - one with HTN), Daughter (age 23 - healthy) Admission Physical Exam [facility] - Vital Signs Vital Signs: Vital Signs - 24 hr 07/19/17 12:41 Temperature 97.4 F L Pulse Rate 62 Respiratory 20 Rate Blood Pressure 149/78 - Physical General Appearance: Yes: Moderate Distress, Irritable, Anxious HEENTM: Yes: EOMI, Normocephalic, LETTY, Pharynx Normal Respiratory: Yes: Chest Non-Tender, Lungs Clear, Normal Breath Sounds, No Respiratory Distress Neck: Yes: No masses,lesions,Nodules, Supple, Trachea in good position Breast: Yes: Breast Exam Deferred Cardiology: Yes: Regular Rhythm, Regular Rate, S1, S2 Abdominal: Yes: Normal Bowel Sounds, Non Tender, Soft Genitourinary: Yes: Other (N/C) Back: Yes: Within Normal Limits Musculoskeletal: Yes: full range of Motion, Gait Steady Extremities: Yes: Normal Range of Motion, Non-Tender Neurological: Yes: heddler II-XII NML intact, Fully Oriented, Alert, Motor Strength 5/5 Integumentary: Yes: Dry, Warm Lymphatic: Yes: Within Normal Limits - Diagnostic (1) Opioid dependence with withdrawal Current Visit: Yes Status: Acute (2) Alcohol dependence with uncomplicated withdrawal Current Visit: Yes Status: Acute (3) Eczema Current Visit: Yes Status: Chronic Qualifiers: Eczema type: other Qualified Code(s): L30.8 - Other specified dermatitis (4) GERD (gastroesophageal reflux disease) Current Visit: Yes Status: Chronic Qualifiers: Esophagitis presence: esophagitis presence not specified Qualified Code(s) : K21.9 - Gastro-esophageal reflux disease without esophagitis (5) HTN (hypertension) Current Visit: Yes Status: Chronic Qualifiers: Hypertension type: essential hypertension Qualified Code(s): I10 - Essential (primary) hypertension Cleared for Admission S - Detox or Rehab S Level of Care: Medically Managed Detox Regimen/Protocol: Methadone/Librium S Breath Alcohol Content Breath Alcohol Content: 0.037 Urine Pregancy Test - Result Urine Test Results: Negative- NO Line Present Urine Drug Screen - Results Drug Screen Negative: No Urine Drug Screen Results: SHONA-Cocaine, OPI-Opiates, MTD-Methadone, OXY- Oxycodone
[2017-07-19] MEDS ORDERED: ACETAMINOPHEN 325 MG TABLET (FP) PO PRN (13:32)
[2017-07-19] MEDS ORDERED: P-EPHED 60MG/TRIPROLIDI 2.5MG TABLET PO PRN (13:32)
[2017-07-19] MEDS ORDERED: guaiFENesin/D-METHORPHAN HB 10 ML UNIT-DOSE CUPS PO PRN (13:32)
[2017-07-19] MEDS ORDERED: MAGNESIUM HYDROX 2400MG/30ML ORAL SUSPENSION 30 ML CUP PO PRN (13:32)
[2017-07-19] MEDS ORDERED: LOPERAMIDE HCL 2 MG CAPSULE PO PRN (13:32)
[2017-07-19] MEDS ORDERED: chlordiazePOXIDE HCL 25 MG CAPSULE PO PRN (13:32)
[2017-07-19] MEDS ORDERED: MENTHOL/PHENOL 1 EACH UD MM PRN (13:32)
[2017-07-19] MEDS ORDERED: MAGNESIUM CITRATE 300 ML BOTTLE PO PRN (13:32)
[2017-07-19] MEDS ORDERED: chlordiazePOXIDE HCL 25 MG CAPSULE PO ONE (13:49)
[2017-07-19] MEDS ORDERED: METHADONE HCL 10 MG TABLET (FOR DETOX USE ONLY) PO ONE ×2 (13:50→23:00)
[2017-07-19] MEDS: NICOTINE 14 MG/24 HOURS TOPICAL PATCH TD SCH (14:39)
--- NOTE | 2017-07-19 15:47 | CONSULT ---
[facility] Psychiatric Consult - Data Date of interview: 07/19/17 Admission source: [facility] Identifying data: Pt. is a 46 year old woman, mother of one, and currently employed as an administrative coordinator. This is one of multiple admissions for patient. Patient admitted to for alcohol, opiate and cocaine dependence. Substance Abuse History: Following information confirmed with Ms. Caballero: Smoking Cessation. Smoking history: Current every day smoker. Have you smoked in the past 12 months: Yes. Aproximately how many cigarettes per day: 6. Hx Chewing Tobacco Use: No. Initiated information on smoking cessation: Yes. ' Breaking Loose' booklet given: 07/19/17. - Substance & Tx. History. Hx Alcohol Use: Yes. Hx Substance Use: Yes. Substance Use Type: Alcohol, Heroin. - Substances Abused. Heroin. Route: Inhalation. Frequency: Daily. Amount used: 4 BAGS. Age of first use: 19. Date of Last Use: 07/18/17. Alcohol. Route: Oral. Frequency: Daily. Amount used: 8-10 CANS BEER. Age of first use: 16. Date of Last Use: 07/19/17. Crack. Route: Smoking. Frequency: 3-6 times per week. Amount used: 2 BAGS. Age of first use: 25. Date of Last Use: 07/18/17. PERCOCET. Route: Oral. Frequency: Daily. Amount used: 8 PILLS. Age of first use: 35. Date of Last Use: 07/19/17 Medical History: hypertension, seizures (r/t alcohol withdrawal), and diabetes Psychiatric History: Pt. denies h/o psychiatric hospitalizations and suicide attempts. Patient's first encounter with a psychiatrist was in 2007 in which she was diagnosed with Bipolar disorder. Pt. last saw a psychiatrist in 2016 and was prescribed depakote, lexapro and seroquel. Pt. has not taken any psychotrophic medications since 2016. Physical/Sexual Abuse/Trauma History: Denies. Mental Status Exam - Mental Status Exam Alert and Oriented to: Time, Place, Person Cognitive Function: Good Patient Appearance: Well Groomed Mood: Euthymic Affect: Mood Congruent Patient Behavior: Appropriate, Cooperative Speech Pattern: Clear, Appropriate Voice Loudness: Normal Thought Process: Goal Oriented Thought Disorder: Not Present Hallucinations: Denies Suicidal Ideation: Denies Homicidal Ideation: Denies Insight/Judgement: Poor Sleep: Fair Appetite: Good Muscle strength/Tone: Normal Gait/Station: Normal Psychiatric Findings - Problem List ([place] 1, 2,3) (1) Bipolar II disorder Current Visit: Yes Status: Chronic Comment: Self reports. No medications in over two years. Agreeable to restarting seroquel. (2) Alcohol dependence with uncomplicated withdrawal Current Visit: Yes Status: Acute (3) Opioid dependence with withdrawal Current Visit: Yes Status: Acute (4) Cocaine dependence Current Visit: No Status: Chronic Qualifiers: Substance use status: uncomplicated Qualified Code(s): F14.20 - Cocaine dependence, uncomplicated - Initial Treatment Plan Initial Treatment Plan: Psychoeducation provided. Detoxification in progress. Seroquel 50mg qhs ordered. Benefits and side effects discussed. Verbal consent given. Will continue to monitor.
[2017-07-19] MEDS: MAG HYDROX/AL HYDROX/SIMETH 30 ML UNIT-DOSE CUP PO PRN (17:07)
[2017-07-19] MEDS: chlordiazePOXIDE HCL 25 MG CAPSULE PO SCH ×2 (17:07→22:35)
[2017-07-19 17:31] LABS: URINE APPEARANCE TURBID; URINE BILIRUBIN NEGATIVE (NEGATIVE); URINE BLOOD NEGATIVE (NEGATIVE); URINE COLOR YELLOW; URINE GLUCOSE (UA) NEGATIVE (NEGATIVE); URINE KETONE TRACE (NEGATIVE); URINE LEUK ESTERASE NEGATIVE (NEGATIVE); URINE NITRITE NEGATIVE (NEGATIVE); URINE UROBILINOGEN 4.0 E.U/dl mg/dL (0.2-1.0)
[2017-07-19 17:37] LABS: URINE PROTEIN 1+ (NEGATIVE)
[2017-07-19] MEDS: THIAMINE HCL 100 MG TABLET (FP) PO SCH (22:34)
[2017-07-19] MEDS: QUEtiapine FUMARATE 50 MG TABLET PO SCH (22:35)
[2017-07-20] MEDS: chlordiazePOXIDE HCL 25 MG CAPSULE PO SCH ×4 (05:44→22:36)
[2017-07-20] MEDS ORDERED: METHADONE HCL 10 MG TABLET (FOR DETOX USE ONLY) PO SCH (10:00)
[2017-07-20] MEDS: NICOTINE 14 MG/24 HOURS TOPICAL PATCH TD SCH (10:47)
[2017-07-20] MEDS: METOPROLOL TARTRATE 25 MG TABLET (FP) PO SCH (10:47)
[2017-07-20] MEDS: PANTOPRAZOLE 40 MG TABLET (FP) PO SCH (10:47)
[2017-07-20] MEDS: PRENATAL VITAMINS W/ FOLIC ACID TABLET (FP) PO SCH (10:47)
[2017-07-20] MEDS: LOSARTAN 50MG/HCTZ 12.5MG 1 TAB (FP) PO SCH (10:47)
[2017-07-20] MEDS: NICOTINE POLACRILEX 2 MG GUM BUC PRN (10:50)
[2017-07-20 10:51] LABS: HEMATOCRIT 39.9 % (32.4-45.2); HEMOGLOBIN 12.9 GM/dL (10.7-15.3); MCHC 32.3 g/dl (32.0-36.0); MEAN CELL VOLUME 83.7 fl (80-96); MEAN PLT VOLUME 10.5 fl (7.5-11.1); PLATELET COUNT 164 K/MM3 (134-434); RBC 4.77 M/mm3 (3.60-5.2); RDW 14.5 % (11.6-15.6); WHITE BLOOD COUNT 8.7 K/mm3 (4.0-10.0)
[2017-07-20 11:21] LABS: CHLORIDE 106 mmol/L (98-107); POTASSIUM 3.5 mmol/L (3.5-5.1); SODIUM 141 mmol/L (136-145)
[2017-07-20 11:43] LABS: ALBUMIN 3.3 g/dl (3.4-5.0); ALK PHOS 68 U/L (45-117); ANION GAP 7 (8-16); BILIRUBIN,TOTAL 0.4 mg/dL (0.2-1.0); BLOOD UREA NITROGEN 18 mg/dL (7-18); CALCIUM 8.1 mg/dL (8.5-10.1); CO2 28 mmol/L (21-32); CREATININE 0.6 mg/dL (0.55-1.02); GLUCOSE,RANDOM 97 mg/dL (74-106); SGOT/AST 13 U/L (15-37); SGPT/ALT 15 U/L (12-78); TOT PROT 5.9 g/dl (6.4-8.2)
[2017-07-20] MEDS: MAG HYDROX/AL HYDROX/SIMETH 30 ML UNIT-DOSE CUP PO PRN ×2 (12:18→17:32)
--- NOTE | 2017-07-20 13:27 | PN ---
[facility] CIWA - CIWA Score Nausea/Vomitin Muscle Tremors: 3 Anxiety: 3 Agitation: 3 Paroxysmal Sweats: 1-Minimal Palms Moist Orientation: 0-Oriented Tacttile Disturbances: 1-Very Mild Itch/Numbness Auditory Disturbances: 1-Very Mild Visual Disturbances: 0-None Headache: 2-Mild CIWA-Ar Total Score: 17 [facility] COWS - Scale Resting Pulse: 0= [place] 80 or Below Sweatin= Chills/Flushing Restless Observation: 3= Extraneous Movement Pupil Size: 1= Pupils >than Normal Bone or Joint Aches: 2= Severe Diffuse Aches Runny Nose/ Eye Tearin= Runny Nose/Eyes GI Upset > 30mins: 3= Vomiting/Diarrhea Tremor Observation of Outstretched Hands: 2= Slight Tremor Visible Yawning Observation: 1= 1-2x During Session Anxiety or Irritability: 2=Irritable/Anxious Goose Flesh Skin: 0=Smooth Skin COWS Score: 17 [facility] Progress Note (SOAP) Subjective: ALERT,IRRITABLE,ANXIOUS,INTERRUPTED SLEEP,TREMOR,PAIN IN THE BODY AND BACK Objective: 07/20/17 13:25 Vital Signs Temperature 98.4 F 07/20/17 10:15 Pulse Rate 76 07/20/17 10:15 Respiratory Rate 18 07/20/17 10:15 Blood Pressure 131/75 07/20/17 10:15 O2 Sat by Pulse Oximetry (%) EKG NSR,LVH NO CHEST PAIN,NO SOB,NO DIZZINESS Laboratory Last Values WBC 8.7 K/mm3 (4.0-10.0) 07/20/17 07:50 RBC 4.77 M/mm3 (3.60-5.2) 07/20/17 07:50 Hgb 12.9 GM/dL (10.7-15.3) 07/20/17 07:50 Hct 39.9 % (32.4-45.2) 07/20/17 07:50 MCV 83.7 fl (80-96) 07/20/17 07:50 MCH 27.0 pg (25.7-33.7) 07/20/17 07:50 MCHC 32.3 g/dl (32.0-36.0) 07/20/17 07:50 RDW 14.5 % (11.6-15.6) 07/20/17 07:50 Plt Count 164 K/MM3 (134-434) 07/20/17 07:50 MPV 10.5 fl (7.5-11.1) 07/20/17 07:50 Sodium 141 mmol/L (136-145) 07/20/17 07:50 Potassium 3.5 mmol/L (3.5-5.1) 07/20/17 07:50 Chloride 106 mmol/L (98-107) 07/20/17 07:50 Carbon Dioxide 28 mmol/L (21-32) 07/20/17 07:50 Anion Gap 7 (8-16) L 07/20/17 07:50 BUN 18 mg/dL (7-18) 07/20/17 07:50 Creatinine 0.6 mg/dL (0.55-1.02) 07/20/17 07:50 Creat Clearance w eGFR > 60 (>60) 07/20/17 07:50 POC Glucometer 121 UNITS (80-120) 07/20/17 07:19 Random Glucose 97 mg/dL (74-106) 07/20/17 07:50 Calcium 8.1 mg/dL (8.5-10.1) L 07/20/17 07:50 Total Bilirubin 0.4 mg/dL (0.2-1.0) D 07/20/17 07:50 AST 13 U/L (15-37) L 07/20/17 07:50 ALT 15 U/L (12-78) 07/20/17 07:50 Alkaline Phosphatase 68 U/L (45-117) 07/20/17 07:50 Total Protein 5.9 g/dl (6.4-8.2) L 07/20/17 07:50 Albumin 3.3 g/dl (3.4-5.0) L 07/20/17 07:50 Urine Color Yellow 07/19/17 15:00 Urine Appearance Turbid 07/19/17 15:00 Urine pH 5.0 (5.0-8.0) 07/19/17 15:00 Ur Specific [place] 1.039 (1.001-1.035) H 07/19/17 15:00 Urine Protein 1+ (NEGATIVE) H 07/19/17 15:00 Urine Glucose (UA) Negative (NEGATIVE) 07/19/17 15:00 Urine Ketones Trace (NEGATIVE) H 07/19/17 15:00 Urine Blood Negative (NEGATIVE) 07/19/17 15:00 Urine Nitrite Negative (NEGATIVE) 07/19/17 15:00 Urine Bilirubin Negative (NEGATIVE) 07/19/17 15:00 Urine Urobilinogen 4.0 e.u/dl mg/dL (0.2-1.0) H 07/19/17 15:00 Ur Leukocyte Esterase Negative (NEGATIVE) 07/19/17 15:00 RPR Titer Nonreactive (NONREACTIVE) 07/20/17 07:50 HIV 1&2 Antibody Screen Negative 07/20/17 07:50 HIV P24 Antigen Negative 07/20/17 07:50 Assessment: 07/20/17 13:26 WITHDRAWAL SYMPTOM Plan: CONTINUE DETOX
[2017-07-20] MEDS ORDERED: RANITIDINE HCL 150 MG TABLET (FP) PO ONE (21:31)
[2017-07-20] MEDS: THIAMINE HCL 100 MG TABLET (FP) PO SCH (22:35)
[2017-07-20] MEDS: QUEtiapine FUMARATE 50 MG TABLET PO SCH (22:36)
[2017-07-21] MEDS: chlordiazePOXIDE HCL 25 MG CAPSULE PO SCH ×2 (05:56→10:43)
[2017-07-21] MEDS: METOPROLOL TARTRATE 25 MG TABLET (FP) PO SCH (10:43)
[2017-07-21] MEDS: METHADONE HCL 5 MG TABLET (FOR DETOX USE ONLY) PO SCH (10:43)
[2017-07-21] MEDS: PRENATAL VITAMINS W/ FOLIC ACID TABLET (FP) PO SCH (10:43)
[2017-07-21] MEDS: LOSARTAN 50MG/HCTZ 12.5MG 1 TAB (FP) PO SCH (10:43)
[2017-07-21] MEDS: PANTOPRAZOLE 40 MG TABLET (FP) PO SCH (10:43)
[2017-07-21] MEDS: NICOTINE 14 MG/24 HOURS TOPICAL PATCH TD SCH (10:44)
[2017-07-21] MEDS: NICOTINE POLACRILEX 2 MG GUM BUC PRN (10:44)
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
[2017-07-21] MEDS ORDERED: BACITRACIN 0.9 GM PACKET TP ONE (13:00)
--- NOTE | 2017-07-21 13:15 | EKG ---
Test Reason : Blood Pressure : / mmHG Vent. Rate : 070 BPM Atrial Rate : 070 BPM P-R Int : 126 ms QRS Dur : 086 ms QT Int : 430 ms P-R-T Axes : 042 052 035 degrees QTc Int : 464 ms NORMAL SINUS RHYTHM MINIMAL VOLTAGE CRITERIA FOR LVH, MAY BE NORMAL VARIANT BORDERLINE ECG WHEN COMPARED WITH ECG OF 19-JUL-2017 15:08, NO SIGNIFICANT CHANGE WAS FOUND BASELINE ARTIFACT Confirmed by MICHELLE HAGEN, FRANNY ([id number]) on 07/21/2017 1:15:49 PM Referred By: Confirmed By:FRANNY MARTINEZ MD
--- NOTE | 2017-07-21 13:25 | EKG ---
Test Reason : Blood Pressure : / mmHG Vent. Rate : 086 BPM Atrial Rate : 086 BPM P-R Int : 118 ms QRS Dur : 082 ms QT Int : 408 ms P-R-T Axes : 073 060 049 degrees QTc Int : 488 ms NORMAL SINUS RHYTHM MODERATE VOLTAGE CRITERIA FOR LVH, MAY BE NORMAL VARIANT PROLONGED QT ABNORMAL ECG WHEN COMPARED WITH ECG OF 23-FEB-2017 16:14, NO SIGNIFICANT CHANGE WAS FOUND BASELINE ARTIFACT Confirmed by FRANNY MARTINEZ MD ([id number]) on 07/21/2017 1:25:02 PM Referred By: Confirmed By:FRANNY MARTINEZ MD
[2017-07-21] MEDS: AMOX TR/POT CLAV 875MG/125MG TABLETS (FP) PO SCH (21:06)
[2017-07-21] MEDS: chlordiazePOXIDE 5 MG CAPSULE PO SCH ×2 (21:07→22:38)
[2017-07-21] MEDS: QUEtiapine FUMARATE 50 MG TABLET PO SCH (22:38)
[2017-07-21] MEDS: THIAMINE HCL 100 MG TABLET (FP) PO SCH (22:38)
[2017-07-22] MEDS: chlordiazePOXIDE 5 MG CAPSULE PO SCH ×2 (05:57→10:40)
[2017-07-22] MEDS: IBUPROFEN 400 MG TABLET (FP) PO PRN ×2 (06:16→22:23)
[2017-07-22] MEDS: AMOX TR/POT CLAV 875MG/125MG TABLETS (FP) PO SCH ×2 (07:56→16:58)
--- NOTE | 2017-07-22 09:01 | PN ---
[facility] Progress Note (SOAP) Subjective: sweat tremor anxiety joint aches restlessness Objective: 07/22/17 09:01 Vital Signs Temperature 97.9 F 07/22/17 06:29 Pulse Rate 72 07/22/17 06:29 Respiratory Rate 18 07/22/17 06:29 Blood Pressure 104/50 07/22/17 06:29 O2 Sat by Pulse Oximetry (%) Laboratory Last Values WBC 8.7 K/mm3 (4.0-10.0) 07/20/17 07:50 RBC 4.77 M/mm3 (3.60-5.2) 07/20/17 07:50 Hgb 12.9 GM/dL (10.7-15.3) 07/20/17 07:50 Hct 39.9 % (32.4-45.2) 07/20/17 07:50 MCV 83.7 fl (80-96) 07/20/17 07:50 MCH 27.0 pg (25.7-33.7) 07/20/17 07:50 MCHC 32.3 g/dl (32.0-36.0) 07/20/17 07:50 RDW 14.5 % (11.6-15.6) 07/20/17 07:50 Plt Count 164 K/MM3 (134-434) 07/20/17 07:50 MPV 10.5 fl (7.5-11.1) 07/20/17 07:50 Sodium 141 mmol/L (136-145) 07/20/17 07:50 Potassium 3.5 mmol/L (3.5-5.1) 07/20/17 07:50 Chloride 106 mmol/L (98-107) 07/20/17 07:50 Carbon Dioxide 28 mmol/L (21-32) 07/20/17 07:50 Anion Gap 7 (8-16) L 07/20/17 07:50 BUN 18 mg/dL (7-18) 07/20/17 07:50 Creatinine 0.6 mg/dL (0.55-1.02) 07/20/17 07:50 Creat Clearance w eGFR > 60 (>60) 07/20/17 07:50 POC Glucometer 132 UNITS (80-120) 07/22/17 05:58 Random Glucose 97 mg/dL (74-106) 07/20/17 07:50 Calcium 8.1 mg/dL (8.5-10.1) L 07/20/17 07:50 Total Bilirubin 0.4 mg/dL (0.2-1.0) D 07/20/17 07:50 AST 13 U/L (15-37) L 07/20/17 07:50 ALT 15 U/L (12-78) 07/20/17 07:50 Alkaline Phosphatase 68 U/L (45-117) 07/20/17 07:50 Total Protein 5.9 g/dl (6.4-8.2) L 07/20/17 07:50 Albumin 3.3 g/dl (3.4-5.0) L 07/20/17 07:50 Urine Color Yellow 07/19/17 15:00 Urine Appearance Turbid 07/19/17 15:00 Urine pH 5.0 (5.0-8.0) 07/19/17 15:00 Ur Specific [place] 1.039 (1.001-1.035) H 07/19/17 15:00 Urine Protein 1+ (NEGATIVE) H 07/19/17 15:00 Urine Glucose (UA) Negative (NEGATIVE) 07/19/17 15:00 Urine Ketones Trace (NEGATIVE) H 07/19/17 15:00 Urine Blood Negative (NEGATIVE) 07/19/17 15:00 Urine Nitrite Negative (NEGATIVE) 07/19/17 15:00 Urine Bilirubin Negative (NEGATIVE) 07/19/17 15:00 Urine Urobilinogen 4.0 e.u/dl mg/dL (0.2-1.0) H 07/19/17 15:00 Ur Leukocyte Esterase Negative (NEGATIVE) 07/19/17 15:00 RPR Titer Nonreactive (NONREACTIVE) 07/20/17 07:50 HIV 1&2 Antibody Screen Negative 07/20/17 07:50 HIV P24 Antigen Negative 07/20/17 07:50 lab noted Assessment: 07/22/17 09:01 withdrawal sx Plan: continue detox
[2017-07-22] MEDS: METOPROLOL TARTRATE 25 MG TABLET (FP) PO SCH (10:39)
[2017-07-22] MEDS: PRENATAL VITAMINS W/ FOLIC ACID TABLET (FP) PO SCH (10:39)
[2017-07-22] MEDS: PANTOPRAZOLE 40 MG TABLET (FP) PO SCH (10:39)
[2017-07-22] MEDS: METHADONE HCL 5 MG TABLET (FOR DETOX USE ONLY) PO SCH (10:39)
[2017-07-22] MEDS: NICOTINE 14 MG/24 HOURS TOPICAL PATCH TD SCH (10:40)
[2017-07-22] MEDS: LOSARTAN 50MG/HCTZ 12.5MG 1 TAB (FP) PO SCH (10:40)
[2017-07-22] MEDS: NICOTINE POLACRILEX 2 MG GUM BUC PRN (10:42)
[2017-07-22] MEDS: chlordiazePOXIDE HCL 10 MG CAPSULE PO SCH ×2 (16:58→22:23)
[2017-07-22] MEDS: THIAMINE HCL 100 MG TABLET (FP) PO SCH (22:23)
[2017-07-22] MEDS: QUEtiapine FUMARATE 50 MG TABLET PO SCH (22:23)
[2017-07-23] MEDS: chlordiazePOXIDE HCL 10 MG CAPSULE PO SCH ×2 (05:47→10:57)
[2017-07-23] MEDS: AMOX TR/POT CLAV 875MG/125MG TABLETS (FP) PO SCH ×2 (08:12→17:06)
[2017-07-23] MEDS ORDERED: METHADONE HCL 10 MG TABLET (FOR DETOX USE ONLY) PO SCH (10:00)
--- NOTE | 2017-07-23 10:21 | PN ---
S Progress Note (SOAP) Subjective: mild tremor, mild joint aches less irritable, less agitation Objective: 07/23/17 10:20 Vital Signs Temperature 97.7 F 07/23/17 06:00 Pulse Rate 72 07/23/17 06:00 Respiratory Rate 18 07/23/17 06:00 Blood Pressure 107/65 07/23/17 06:00 O2 Sat by Pulse Oximetry (%) Laboratory Last Values WBC 8.7 K/mm3 (4.0-10.0) 07/20/17 07:50 RBC 4.77 M/mm3 (3.60-5.2) 07/20/17 07:50 Hgb 12.9 GM/dL (10.7-15.3) 07/20/17 07:50 Hct 39.9 % (32.4-45.2) 07/20/17 07:50 MCV 83.7 fl (80-96) 07/20/17 07:50 MCH 27.0 pg (25.7-33.7) 07/20/17 07:50 MCHC 32.3 g/dl (32.0-36.0) 07/20/17 07:50 RDW 14.5 % (11.6-15.6) 07/20/17 07:50 Plt Count 164 K/MM3 (134-434) 07/20/17 07:50 MPV 10.5 fl (7.5-11.1) 07/20/17 07:50 Sodium 141 mmol/L (136-145) 07/20/17 07:50 Potassium 3.5 mmol/L (3.5-5.1) 07/20/17 07:50 Chloride 106 mmol/L (98-107) 07/20/17 07:50 Carbon Dioxide 28 mmol/L (21-32) 07/20/17 07:50 Anion Gap 7 (8-16) L 07/20/17 07:50 BUN 18 mg/dL (7-18) 07/20/17 07:50 Creatinine 0.6 mg/dL (0.55-1.02) 07/20/17 07:50 Creat Clearance w eGFR > 60 (>60) 07/20/17 07:50 POC Glucometer 131 UNITS (80-120) 07/23/17 05:50 Random Glucose 97 mg/dL (74-106) 07/20/17 07:50 Calcium 8.1 mg/dL (8.5-10.1) L 07/20/17 07:50 Total Bilirubin 0.4 mg/dL (0.2-1.0) D 07/20/17 07:50 AST 13 U/L (15-37) L 07/20/17 07:50 ALT 15 U/L (12-78) 07/20/17 07:50 Alkaline Phosphatase 68 U/L (45-117) 07/20/17 07:50 Total Protein 5.9 g/dl (6.4-8.2) L 07/20/17 07:50 Albumin 3.3 g/dl (3.4-5.0) L 07/20/17 07:50 Urine Color Yellow 07/19/17 15:00 Urine Appearance Turbid 07/19/17 15:00 Urine pH 5.0 (5.0-8.0) 07/19/17 15:00 Ur Specific [place] 1.039 (1.001-1.035) H 07/19/17 15:00 Urine Protein 1+ (NEGATIVE) H 07/19/17 15:00 Urine Glucose (UA) Negative (NEGATIVE) 07/19/17 15:00 Urine Ketones Trace (NEGATIVE) H 07/19/17 15:00 Urine Blood Negative (NEGATIVE) 07/19/17 15:00 Urine Nitrite Negative (NEGATIVE) 07/19/17 15:00 Urine Bilirubin Negative (NEGATIVE) 07/19/17 15:00 Urine Urobilinogen 4.0 e.u/dl mg/dL (0.2-1.0) H 07/19/17 15:00 Ur Leukocyte Esterase Negative (NEGATIVE) 07/19/17 15:00 RPR Titer Nonreactive (NONREACTIVE) 07/20/17 07:50 HIV 1&2 Antibody Screen Negative 07/20/17 07:50 HIV P24 Antigen Negative 07/20/17 07:50 lab noted Assessment: 07/23/17 10:21 mild withdrawal sx Plan: medically supervised detox
[2017-07-23] MEDS: PRENATAL VITAMINS W/ FOLIC ACID TABLET (FP) PO SCH (10:57)
[2017-07-23] MEDS: LOSARTAN 50MG/HCTZ 12.5MG 1 TAB (FP) PO SCH (10:57)
[2017-07-23] MEDS: METOPROLOL TARTRATE 25 MG TABLET (FP) PO SCH (10:57)
[2017-07-23] MEDS: PANTOPRAZOLE 40 MG TABLET (FP) PO SCH (10:57)
[2017-07-23] MEDS: NICOTINE POLACRILEX 2 MG GUM BUC PRN ×2 (10:58→22:23)
[2017-07-23] MEDS: NICOTINE 14 MG/24 HOURS TOPICAL PATCH TD SCH (10:58)
[2017-07-23] MEDS: QUEtiapine FUMARATE 50 MG TABLET PO SCH (22:21)
[2017-07-23] MEDS: IBUPROFEN 400 MG TABLET (FP) PO PRN (22:21)
[2017-07-23] MEDS: THIAMINE HCL 100 MG TABLET (FP) PO SCH (22:21)
[2017-07-24] MEDS ORDERED: METHADONE HCL 5 MG TABLET (FOR DETOX USE ONLY) PO SCH (06:00)
[2017-07-24] MEDS: AMOX TR/POT CLAV 875MG/125MG TABLETS (FP) PO SCH (07:02)
--- NOTE | 2017-07-24 08:25 | DS ---
[facility] Detox Discharge Summary Admission Date: 07/19/17 Discharge Date: 07/24/17 - History Present History: Alcohol Dependence - Physical Exam Results Vital Signs: Vital Signs Temperature 97.5 F L 07/24/17 06:27 Pulse Rate 82 07/24/17 06:27 Respiratory Rate 18 07/24/17 06:27 Blood Pressure 114/50 07/24/17 06:27 O2 Sat by Pulse Oximetry (%) Pertinent Admission Physical Exam Findings: withdrawal sx Vital Signs Temperature 97.5 F L 07/24/17 06:27 Pulse Rate 82 07/24/17 06:27 Respiratory Rate 18 07/24/17 06:27 Blood Pressure 114/50 07/24/17 06:27 O2 Sat by Pulse Oximetry (%) Laboratory Last Values WBC 8.7 K/mm3 (4.0-10.0) 07/20/17 07:50 RBC 4.77 M/mm3 (3.60-5.2) 07/20/17 07:50 Hgb 12.9 GM/dL (10.7-15.3) 07/20/17 07:50 Hct 39.9 % (32.4-45.2) 07/20/17 07:50 MCV 83.7 fl (80-96) 07/20/17 07:50 MCH 27.0 pg (25.7-33.7) 07/20/17 07:50 MCHC 32.3 g/dl (32.0-36.0) 07/20/17 07:50 RDW 14.5 % (11.6-15.6) 07/20/17 07:50 Plt Count 164 K/MM3 (134-434) 07/20/17 07:50 MPV 10.5 fl (7.5-11.1) 07/20/17 07:50 Sodium 141 mmol/L (136-145) 07/20/17 07:50 Potassium 3.5 mmol/L (3.5-5.1) 07/20/17 07:50 Chloride 106 mmol/L (98-107) 07/20/17 07:50 Carbon Dioxide 28 mmol/L (21-32) 07/20/17 07:50 Anion Gap 7 (8-16) L 07/20/17 07:50 BUN 18 mg/dL (7-18) 07/20/17 07:50 Creatinine 0.6 mg/dL (0.55-1.02) 07/20/17 07:50 Creat Clearance w eGFR > 60 (>60) 07/20/17 07:50 POC Glucometer 111 UNITS (80-120) 07/24/17 05:40 Random Glucose 97 mg/dL (74-106) 07/20/17 07:50 Calcium 8.1 mg/dL (8.5-10.1) L 07/20/17 07:50 Total Bilirubin 0.4 mg/dL (0.2-1.0) D 07/20/17 07:50 AST 13 U/L (15-37) L 07/20/17 07:50 ALT 15 U/L (12-78) 07/20/17 07:50 Alkaline Phosphatase 68 U/L (45-117) 07/20/17 07:50 Total Protein 5.9 g/dl (6.4-8.2) L 07/20/17 07:50 Albumin 3.3 g/dl (3.4-5.0) L 07/20/17 07:50 Urine Color Yellow 07/19/17 15:00 Urine Appearance Turbid 07/19/17 15:00 Urine pH 5.0 (5.0-8.0) 07/19/17 15:00 Ur Specific [place] 1.039 (1.001-1.035) H 07/19/17 15:00 Urine Protein 1+ (NEGATIVE) H 07/19/17 15:00 Urine Glucose (UA) Negative (NEGATIVE) 07/19/17 15:00 Urine Ketones Trace (NEGATIVE) H 07/19/17 15:00 Urine Blood Negative (NEGATIVE) 07/19/17 15:00 Urine Nitrite Negative (NEGATIVE) 07/19/17 15:00 Urine Bilirubin Negative (NEGATIVE) 07/19/17 15:00 Urine Urobilinogen 4.0 e.u/dl mg/dL (0.2-1.0) H 07/19/17 15:00 Ur Leukocyte Esterase Negative (NEGATIVE) 07/19/17 15:00 RPR Titer Nonreactive (NONREACTIVE) 07/20/17 07:50 HIV 1&2 Antibody Screen Negative 07/20/17 07:50 HIV P24 Antigen Negative 07/20/17 07:50 lab noted - Treatment Hospital Course: Detox Protocol Followed, Detoxed Safely, Responded well, Discharged Condition Good, Rehab Referral Accepted - Medication Discharge Medications: Ambulatory Orders Losartan/Hydrochlorothiazide [Hyzaar 100-25 Tablet] 1 each PO DAILY #14 tablet 07/24/17 Metoprolol Tartrate [Lopressor -] 25 mg PO DAILY #30 tablet MDD 1 07/24/17 Omeprazole 20 mg PO DAILY #30 tab 07/24/17 - Diagnosis (1) Alcohol dependence with uncomplicated withdrawal Current Visit: Yes Status: Acute (2) Bipolar II disorder Current Visit: Yes Status: Suspected - AMA Did Patient Leave Against Medical Advice: No
[2017-07-24] MEDS: PRENATAL VITAMINS W/ FOLIC ACID TABLET (FP) PO SCH (09:12)
[2017-07-24] MEDS: PANTOPRAZOLE 40 MG TABLET (FP) PO SCH (09:12)
[2017-07-24] MEDS: METOPROLOL TARTRATE 25 MG TABLET (FP) PO SCH (09:13)
[2017-07-24] MEDS: LOSARTAN 50MG/HCTZ 12.5MG 1 TAB (FP) PO SCH (09:13)
[2017-07-24 10:11] VITALS: BP 126/76; PULSE 79; TEMP 97.3
[2017-07-24] MEDS: NICOTINE 14 MG/24 HOURS TOPICAL PATCH TD SCH (10:47)
== END 2017-07-24 11:11 | disposition home or self-care (01) | DRG 773 ==
LOC: YASAS 11:41 → Y6N 13:28
PROVIDERS: ADMIT Internal Medicine; ATTEND Internal Medicine
PROC: HZ2ZZZZ Detoxification Services for Substance Abuse Treatment (ICD-10-PCS; principal; 2017-07-19)
DX: F11.23 Opioid dependence with withdrawal (principal); F10.230 Alcohol dependence with withdrawal, uncomplicated; F14.20 Cocaine dependence, uncomplicated; F17.210 Nicotine dependence, cigarettes, uncomplicated; F31.81 Bipolar II disorder; I10 Essential (primary) hypertension; L30.8 Other specified dermatitis; K21.9 Gastro-esophageal reflux disease without esophagitis; Z86.69 Personal history of other diseases of the nervous system and sense organs; Z88.8 Allergy status to other drugs, medicaments and biological substances
CPT/HCPCS: 36415; 80053; 81003; 81015; 82962; 85027; 86593; 87389; 93005; 93010

== ENCOUNTER 2017-10-26 13:20 | Inpatient (IN) | payer OTHER ==
[2017-10-26 15:57] VITALS: BMI 26.9
--- NOTE | 2017-10-26 18:44 | HP ---
COWS - Scale Resting Pulse: 0= NC 80 or Below Sweatin=Flushed/Facial Moisture Restless Observation: 3= Extraneous Movement Pupil Size: 2= Moderately Dilated Bone or Joint Aches: 2= Severe Diffuse Aches Runny Nose/ Eye Tearin= Runny Nose/Eyes GI Upset > 30mins: 3= Vomiting/Diarrhea Tremor Observation: 2= Slight Tremor Visible Yawning Observation: 2= >3x During Session Anxiety or Irritability: 2=Irritable/Anxious Goose Flesh Skin: 0=Smooth Skin COWS Score: 20 CIWA Score - CIWA Score Nausea/Vomitin Muscle Tremors: 3 Anxiety: 3 Agitation: 3 Paroxysmal Sweats: 1-Minimal Palms Moist Orientation: 0-Oriented Tacttile Disturbances: 2-Mild Itch/Numbness/Burn Auditory Disturbances: 2-Mild Harshness/Frighten Visual Disturbances: 2-Mild Sensitivity Headache: 2-Mild CIWA-Ar Total Score: 21 Admission ROS S - HPI Chief Complaint: I NEED HELP TO STOP USING HEROIN,PERCOCET,ALCOHOL,COCAINE Allergies/Adverse Reactions: Allergies Allergy/AdvReac Type Severity Reaction Status Date / Time lisinopril Allergy Mild Swelling Verified 10/26/17 17:41 History of Present Illness: THIS 47 YEARS OLD FEMALE WITH HEROIN,PERCOCET,ALCOHOL AND COCAINE DEPENDENCE, SEEKING DETOX,LAST DETOX - Ebola screening Have you traveled outside of the country in the last 21 days: No (NN) Have you had contact with anyone from an Ebola affected area: No Have you been sick,other than usual withdrawal symptoms: No Do you have a fever: No - Review of Systems Constitutional: Chills, Loss of Appetite, Malaise, Night Sweats, Changes in sleep, Weakness, Unintentional Wgt. Loss EENT: reports: Tearing, Nose Congestion Respiratory: reports: No Symptoms reported Cardiac: reports: No Symptoms Reported, Palpitations GI: reports: Diarrhea, Nausea, Vomiting, Abdominal cramping : reports: No Symptoms Reported Musculoskeletal: reports: Back Pain, Joint Pain, Muscle Pain, Joint Stiffness Neuro: reports: Headache, Tremors Endocrine: reports: No Symptoms Reported, Other (KIRSTEN 2 DM) Hematology: reports: No Symptoms Reported Psychiatric: reports: No Sypmtoms Reported, Judgement Intact, Mood/Affect Appropiate, Depressed, other (BIPOLAR DISORDER) Patient History - Patient Medical History Hx Anemia: No Hx Asthma: No Hx Chronic Obstructive Pulmonary Disease (COPD): No Hx Cancer: No Hx Cardiac Disorders: No Hx Congestive Heart Failure: No Hx Hypertension: Yes (HTN -ON MEDS) Hx Hypercholesterolemia: No Hx Pacemaker: No HX Cerebrovascular Accident: No Hx Seizures: Yes (years ago relate to Alcohol) Hx Dementia: No Hx Diabetes: Yes (NO MEDICATION LAST 6 MOTHS AGO) Hx Gastrointestinal Disorders: Yes (GERD) Hx Liver Disease: No Hx Genitourinary Disorders: No Hx Sexually Transmitted Disorders: No Hx Renal Disease (ESRD): No Hx Thyroid Disease: No Hx Human Immunodeficiency Virus (HIV): No (NEGATIVE HX LAST 07/04 ) Hx Hepatitis C: No Hx Depression: Yes (past history) Hx Suicide Attempt: No (DENIES) Hx Bipolar Disorder: Yes Hx Schizophrenia: No Other Medical History: NO SUICIDAL,NO HOMICIDAL - Patient Surgical History Past Surgical History: Yes Hx Neurologic Surgery: No Hx Cataract Extraction: No Hx Cardiac Surgery: No Hx Lung Surgery: No Hx Breast Surgery: No Hx Breast Biopsy: No Hx Abdominal Surgery: No Hx Appendectomy: No Hx Cholecystectomy: No Hx Genitourinary Surgery: No Hx Section: No Hx Orthopedic Surgery: Yes (left knee arthroscopy 08/31 FOR TORN MENISCUS) Hx Hysterectomy: No Anesthesia Reaction: No - PPD History Previous Implant?: Yes Documented Results: Negative w/proof Date: 02/25/17 Results: 0 mm PPD to be Administered?: No - Reproductive History Patient is a Female of Child Bearing Age (11 -55 yrs old): Yes Last Menstrual Period: 01/02/12 Patient : No - Smoking Cessation Smoking history: Current every day smoker Have you smoked in the past 12 months: Yes Aproximately how many cigarettes per day: 6 Hx Chewing Tobacco Use: No Initiated information on smoking cessation: Yes 'Breaking Loose' booklet given: 10/26/17 - Substance & Tx. History Hx Alcohol Use: Yes Hx Substance Use: Yes Substance Use Type: Alcohol, Heroin, Opiates - Substances Abused Alcohol Route: Oral Frequency: Daily Amount used: 05/28OZ BEERS - 1PINT HENNESIES Age of first use: 12 Date of Last Use: 10/26/17 Heroin Route: SNIFF Frequency: Daily Amount used: 4 BAGS Age of first use: 22 Date of Last Use: 10/26/17 PERCOCET Route: Oral Frequency: Daily Amount used: 4/10MG Age of first use: 35 Date of Last Use: 10/25/17 Cocaine Route: Smoking Frequency: Daily Amount used: 100$ Age of first use: 22 Date of Last Use: 10/26/17 Family Disease History - Family Disease History Family Disease History: Diabetes: Father (, etoh), Heart Disease: Mother (, etoh/drugs), Other: Father, Mother, Brother (1 -OR ) , Sister (2 - living - one with HTN), Daughter (age 23 - healthy) Admission Physical Exam [facility] - Vital Signs Vital Signs: Vital Signs - 24 hr 10/26/17 15:55 Temperature 98.7 F Pulse Rate 65 Respiratory 21 Rate Blood Pressure 139/89 - Physical General Appearance: Yes: Moderate Distress, Tremorous, Irritable, Sweating, Anxious HEENTM: Yes: Normal ENT Inspection, LETTY, Pharynx Normal Respiratory: Yes: Within Normal Limits, Lungs Clear, Normal Breath Sounds, No Respiratory Distress Neck: Yes: Within Normal Limits, Supple, Trachea in good position Breast: Yes: Breast Exam Deferred Cardiology: Yes: Within Normal Limits, Regular Rhythm, Regular Rate, S1, S2 Abdominal: Yes: Within Normal Limits, Normal Bowel Sounds, Non Tender, Flat, Soft Genitourinary: Yes: Within Normal Limits Back: Yes: Normal Inspection, Muscle Spasm Musculoskeletal: Yes: Back pain, Joint Stiffness, Muscle Pain Extremities: Yes: Within Normal Limits, Normal Range of Motion, Tremors Neurological: Yes: sweeping compound blender II-XII NML intact, Fully Oriented, Alert, Motor Strength 5/5 Integumentary: Yes: Dry Lymphatic: Yes: Within Normal Limits - Diagnostic (1) Opioid dependence with withdrawal Current Visit: No Status: Acute (2) Alcohol dependence with uncomplicated withdrawal Current Visit: No Status: Acute (3) Cocaine dependence Current Visit: No Status: Chronic Qualifiers: Substance use status: uncomplicated Qualified Code(s): F14.20 - Cocaine dependence, uncomplicated (4) Eczema Current Visit: No Status: Chronic Qualifiers: Eczema type: other Qualified Code(s): L30.8 - Other specified dermatitis (5) GERD (gastroesophageal reflux disease) Current Visit: No Status: Chronic Qualifiers: Esophagitis presence: esophagitis presence not specified Qualified Code(s) : K21.9 - Gastro-esophageal reflux disease without esophagitis (6) HTN (hypertension) Current Visit: No Status: Chronic Qualifiers: Hypertension type: essential hypertension Qualified Code(s): I10 - Essential (primary) hypertension (7) Bipolar II disorder Current Visit: No Status: Suspected Comment: Self reports. No medications in over two years. Agreeable to restarting seroquel. (8) Asthma Current Visit: Yes Status: Acute Cleared for Admission [facility] - Detox or Rehab [facility] Level of Care: Medically Managed Detox Regimen/Protocol: Methadone/Librium [facility] Breath Alcohol Content Breath Alcohol Content: 0 Urine Pregancy Test - Result Urine Test Results: Negative- NO Line Present Urine Drug Screen - Results Drug Screen Negative: No Urine Drug Screen Results: SHONA-Cocaine, OPI-Opiates, MTD-Methadone, OXY- Oxycodone
[2017-10-26] MEDS ORDERED: MAGNESIUM CITRATE 300 ML BOTTLE PO PRN (18:59)
[2017-10-26] MEDS ORDERED: LOPERAMIDE HCL 2 MG CAPSULE PO PRN (18:59)
[2017-10-26] MEDS ORDERED: MAGNESIUM HYDROX 2400MG/30ML ORAL SUSPENSION 30 ML CUP PO PRN (18:59)
[2017-10-26] MEDS ORDERED: METHADONE HCL 10 MG TABLET (FOR DETOX USE ONLY) PO ONE ×2 (18:59→23:00)
[2017-10-26] MEDS ORDERED: ACETAMINOPHEN 325 MG TABLET (FP) PO PRN (18:59)
[2017-10-26] MEDS ORDERED: hydrOXYzine PAMOATE 25 MG CAPSULE (FP) PO PRN (18:59)
[2017-10-26] MEDS ORDERED: P-EPHED 60MG/TRIPROLIDI 2.5MG TABLET PO PRN (18:59)
[2017-10-26] MEDS ORDERED: IBUPROFEN 400 MG TABLET (FP) PO PRN (18:59)
[2017-10-26] MEDS ORDERED: chlordiazePOXIDE HCL 25 MG CAPSULE PO PRN (18:59)
[2017-10-26] MEDS ORDERED: MAG HYDROX/AL HYDROX/SIMETH 30 ML UNIT-DOSE CUP PO PRN (18:59)
[2017-10-26] MEDS ORDERED: guaiFENesin/D-METHORPHAN HB 10 ML UNIT-DOSE CUPS PO PRN (18:59)
[2017-10-26] MEDS ORDERED: MENTHOL/PHENOL 1 EACH UD MM PRN (18:59)
[2017-10-26] MEDS ORDERED: ALBUTEROL SO4 18 GM HFA INHALER IH PRN (19:03)
[2017-10-26] MEDS ORDERED: MELATONIN 5 MG TABLETS PO PRN (22:00)
[2017-10-26] MEDS: chlordiazePOXIDE HCL 25 MG CAPSULE PO SCH (22:25)
[2017-10-26] MEDS: THIAMINE HCL 100 MG TABLET (FP) PO SCH (22:25)
[2017-10-26] MEDS: NICOTINE POLACRILEX 2 MG GUM BC PRN (23:09)
[2017-10-27] MEDS: chlordiazePOXIDE HCL 25 MG CAPSULE PO SCH ×4 (05:25→22:16)
[2017-10-27] MEDS ORDERED: METHADONE HCL 10 MG TABLET (FOR DETOX USE ONLY) PO SCH (10:00)
[2017-10-27] MEDS ORDERED: hydrALAZINE HCL 25 MG TABLET (FP) PO SCH (10:00)
[2017-10-27 10:09] LABS: HEMATOCRIT 41.2 % (32.4-45.2); HEMOGLOBIN 13.7 GM/dL (10.7-15.3); MCHC 33.3 g/dl (32.0-36.0); MEAN CELL VOLUME 84.3 fl (80-96); MEAN PLT VOLUME 11.1 fl (7.5-11.1); PLATELET COUNT 145 K/MM3 (134-434); RBC 4.89 M/mm3 (3.60-5.2); RDW 14.3 % (11.6-15.6); WHITE BLOOD COUNT 8.3 K/mm3 (4.0-10.0)
[2017-10-27 10:23] LABS: CHLORIDE 104 mmol/L (98-107); POTASSIUM 3.7 mmol/L (3.5-5.1); SODIUM 139 mmol/L (136-145)
[2017-10-27 10:30] LABS: ALBUMIN 3.8 g/dl (3.4-5.0); ALK PHOS 69 U/L (45-117); ANION GAP 8 (8-16); BILIRUBIN,TOTAL 0.3 mg/dL (0.2-1.0); BLOOD UREA NITROGEN 12 mg/dL (7-18); CALCIUM 8.5 mg/dL (8.5-10.1); CO2 27 mmol/L (21-32); CREATININE 0.6 mg/dL (0.55-1.02); GLUCOSE,RANDOM 95 mg/dL (74-106); SGOT/AST 11 U/L (15-37); SGPT/ALT 10 U/L (12-78); TOT PROT 6.5 g/dl (6.4-8.2)
[2017-10-27] MEDS: METOPROLOL TARTRATE 25 MG TABLET (FP) PO SCH (10:52)
[2017-10-27] MEDS: PRENATAL VITAMINS W/ FOLIC ACID TABLET (FP) PO SCH (10:52)
[2017-10-27] MEDS: PANTOPRAZOLE 40 MG TABLET (FP) PO SCH (10:53)
[2017-10-27] MEDS: NICOTINE POLACRILEX 2 MG GUM BC PRN (11:19)
[2017-10-27] MEDS: hydrALAZINE HCL 50 MG TABLET (FP) PO SCH (12:30)
[2017-10-27 13:07] LABS: URINE APPEARANCE CLEAR; URINE BILIRUBIN NEGATIVE (<2.0 mg/dL); URINE COLOR LTYELLOW; URINE GLUCOSE (UA) NEGATIVE (NEGATIVE); URINE KETONE NEGATIVE (NEGATIVE); URINE LEUK ESTERASE NEGATIVE (NEGATIVE); URINE NITRITE NEGATIVE (NEGATIVE); URINE PROTEIN NEGATIVE (NEGATIVE)
--- NOTE | 2017-10-27 13:27 | EKG ---
Test Reason : Blood Pressure : / mmHG Vent. Rate : 056 BPM Atrial Rate : 056 BPM P-R Int : 126 ms QRS Dur : 094 ms QT Int : 510 ms P-R-T Axes : 072 055 051 degrees QTc Int : 492 ms SINUS BRADYCARDIA MINIMAL VOLTAGE CRITERIA FOR LVH, MAY BE NORMAL VARIANT PROLONGED QT ABNORMAL ECG WHEN COMPARED WITH ECG OF 20-JUL-2017 09:55, NO SIGNIFICANT CHANGE WAS FOUND Confirmed by KRISTIN HOFFMAN MD ([id number]) on 10/27/2017 1:27:04 PM Referred By: Confirmed By:KRISTIN HOFFMAN MD
--- NOTE | 2017-10-27 13:53 | PN ---
S CIWA - CIWA Score Nausea/Vomitin Muscle Tremors: 3 Anxiety: 3 Agitation: 3 Paroxysmal Sweats: 3 Orientation: 0-Oriented Tacttile Disturbances: 1-Very Mild Itch/Numbness Auditory Disturbances: 0-None Visual Disturbances: 0-None Headache: 1-Very Mild CIWA-Ar Total Score: 17 BHS COWS - Scale Resting Pulse: 0= [place] 80 or Below Sweatin= Chills/Flushing Restless Observation: 3= Extraneous Movement Pupil Size: 0= Normal to Room Light Bone or Joint Aches: 2= Severe Diffuse Aches Runny Nose/ Eye Tearin= Runny Nose/Eyes GI Upset > 30mins: 2= Nausea/Diarrhea Tremor Observation of Outstretched Hands: 2= Slight Tremor Visible Yawning Observation: 1= 1-2x During Session Anxiety or Irritability: 2=Irritable/Anxious Goose Flesh Skin: 0=Smooth Skin COWS Score: 15 S Progress Note (SOAP) Subjective: Sweating, chills, tremor, interrupted sleep; c/o eczema and requesting cream. Objective: 10/27/17 13:50 Last Vital Signs Temp Pulse Resp BP Pulse Ox 97.2 F L 61 20 115/81 10/27/17 09:45 10/27/17 09:45 10/27/17 09:45 10/27/17 09:45 Laboratory Tests 10/27/17 10/27/17 10/27/17 08:00 08:00 08:00 WBC 8.3 RBC 4.89 Hgb 13.7 Hct 41.2 MCV 84.3 MCH 28.0 MCHC 33.3 RDW 14.3 Plt Count 145 MPV 11.1 Sodium 139 Potassium 3.7 Chloride 104 Carbon Dioxide 27 Anion Gap 8 BUN 12 Creatinine 0.6 Creat Clearance w eGFR > 60 Random Glucose 95 Calcium 8.5 Total Bilirubin 0.3 D AST 11 L ALT 10 L Alkaline Phosphatase 69 Total Protein 6.5 Albumin 3.8 Urine Color Urine Appearance Urine pH Ur Specific [place] Urine Protein Urine Glucose (UA) Urine Ketones Urine Blood Urine Nitrite Urine Bilirubin Urine Urobilinogen Ur Leukocyte Esterase RPR Titer HIV 1&2 Antibody Screen Negative HIV P24 Antigen Negative 10/27/17 10/27/17 08:00 09:35 WBC RBC Hgb Hct MCV MCH MCHC RDW Plt Count MPV Sodium Potassium Chloride Carbon Dioxide Anion Gap BUN Creatinine Creat Clearance w eGFR Random Glucose Calcium Total Bilirubin AST ALT Alkaline Phosphatase Total Protein Albumin Urine Color Ltyellow Urine Appearance Clear Urine pH 6.0 Ur Specific [place] 1.016 Urine Protein Negative Urine Glucose (UA) Negative Urine Ketones Negative Urine Blood Negative Urine Nitrite Negative Urine Bilirubin Negative Urine Urobilinogen 2.0 H Ur Leukocyte Esterase Negative RPR Titer Nonreactive HIV 1&2 Antibody Screen HIV P24 Antigen Labs reviewed Assessment: 10/27/17 13:52 Withdrawal symptoms c/o eczema Noted with prolonged QTc on EKG (478) trending downward Plan: Continue detox Encouraged PO hydration Eczema: triamcinolone cream bid Prolonged QTc: asymptomatic, continue to monitor
--- NOTE | 2017-10-27 18:11 | CONSULT ---
[facility] Psychiatric Consult - Data Date of interview: 10/27/17 Admission source: Self-referred Identifying data: Patient is a 47 y/o AA woman , employed, domiciled, mother of a 23 y/o daughter admitted to Detox for substnace use disorder Substance Abuse History: She has a history of ETOH abuse, Heroin and Percocet. Please refer to addiction counselor note for more detailed history Medical History: Medical history is significant for HTN, Asthma, past history of diabetes , alcohol related seizure. Past surgical history of bilateral knee surgery for torn meniscus Psychiatric History: Patient denies prior psychiatric hospitalization, has a past diagnosis of Bipolar depression in remission. Past medication treatment with Seroquel, Ambien Wellbutrin. She has been off medication for 6 mo, she recently resume her Seroquel last week. She has been taking medications on and off and resume her out patienty treatment at [facility] 3 weeks ago. Physical/Sexual Abuse/Trauma History: Denies history of physical abuse or trauma Mental Status Exam - Mental Status Exam Alert and Oriented to: Place, Person Cognitive Function: Grossly Intact Patient Appearance: Well Groomed Mood: Depressed Affect: Appropriate Patient Behavior: Cooperative Speech Pattern: Clear Voice Loudness: Normal Thought Process: Intact Thought Disorder: Not Present Hallucinations: None Suicidal Ideation: None Homicidal Ideation: None Insight/Judgement: Poor Sleep: Poorly Appetite: Fair Muscle strength/Tone: Normal Gait/Station: Normal (Patient explained she overdosed owith pills over 10 years ago, she was not hospitalized or seek mental health care treatment at the time j ) Psychiatric Findings - Problem List ([place] 1, 2,3) (1) Opioid dependence with withdrawal Current Visit: Yes Status: Acute (2) Bipolar II disorder Current Visit: Yes Status: Chronic Comment: Self reports. No medications in over two years. Agreeable to restarting seroquel. (3) Cocaine dependence Current Visit: Yes Status: Acute Qualifiers: Substance use status: uncomplicated Qualified Code(s): F14.20 - Cocaine dependence, uncomplicated (4) GERD (gastroesophageal reflux disease) Current Visit: Yes Status: Chronic Qualifiers: Esophagitis presence: esophagitis presence not specified Qualified Code(s) : K21.9 - Gastro-esophageal reflux disease without esophagitis (5) Drug-induced mood disorder Current Visit: No Status: Chronic - Initial Treatment Plan Initial Treatment Plan: Continue in patient Detox treatment. Renew Serquel 300 mg po q hs
--- NOTE | 2017-10-27 21:49 | EKG ---
Test Reason : Blood Pressure : / mmHG Vent. Rate : 053 BPM Atrial Rate : 053 BPM P-R Int : 118 ms QRS Dur : 092 ms QT Int : 510 ms P-R-T Axes : 049 062 060 degrees QTc Int : 478 ms SINUS BRADYCARDIA OTHERWISE NORMAL ECG WHEN COMPARED WITH ECG OF 26-OCT-2017 20:14, NO SIGNIFICANT CHANGE WAS FOUND Confirmed by KRISTIN HOFFMAN MD ([id number]) on 10/27/2017 9:49:25 PM Referred By: Confirmed By:KRISTIN HOFFMAN MD
[2017-10-27] MEDS: QUEtiapine FUMARATE 300 MG TABLET PO SCH (22:15)
[2017-10-27] MEDS: THIAMINE HCL 100 MG TABLET (FP) PO SCH (22:15)
[2017-10-27] MEDS: TRIAMCINOLONE ACET 0.1% CREAM 15 GM TUBE TP SCH (22:17)
[2017-10-28] MEDS: chlordiazePOXIDE HCL 25 MG CAPSULE PO SCH ×3 (05:27→17:27)
--- NOTE | 2017-10-28 09:32 | PN ---
[facility] CIWA - CIWA Score Nausea/Vomitin Muscle Tremors: 3 Anxiety: 3 Agitation: 2 Paroxysmal Sweats: 1-Minimal Palms Moist Orientation: 0-Oriented Tacttile Disturbances: 1-Very Mild Itch/Numbness Auditory Disturbances: 1-Very Mild Visual Disturbances: 0-None Headache: 2-Mild CIWA-Ar Total Score: 16 BHS COWS - Scale Resting Pulse: 1= [place] 81-100 Sweatin= Chills/Flushing Restless Observation: 3= Extraneous Movement Pupil Size: 1= Pupils >than Normal Bone or Joint Aches: 2= Severe Diffuse Aches Runny Nose/ Eye Tearin= Runny Nose/Eyes GI Upset > 30mins: 3= Vomiting/Diarrhea Tremor Observation of Outstretched Hands: 2= Slight Tremor Visible Yawning Observation: 1= 1-2x During Session Anxiety or Irritability: 2=Irritable/Anxious Goose Flesh Skin: 0=Smooth Skin COWS Score: 18 S Progress Note (SOAP) Subjective: ALERT,IRRITABLE,ANXIOUS,INTERRUPTED SLEEP,PAIN IN THE BODY AND BACK Objective: 10/28/17 09:31 Vital Signs Temperature 96.6 F L 10/28/17 07:12 Pulse Rate 65 10/28/17 07:12 Respiratory Rate 18 10/28/17 07:12 Blood Pressure 114/84 10/28/17 07:12 O2 Sat by Pulse Oximetry (%) Laboratory Last Values WBC 8.3 K/mm3 (4.0-10.0) 10/27/17 08:00 RBC 4.89 M/mm3 (3.60-5.2) 10/27/17 08:00 Hgb 13.7 GM/dL (10.7-15.3) 10/27/17 08:00 Hct 41.2 % (32.4-45.2) 10/27/17 08:00 MCV 84.3 fl (80-96) 10/27/17 08:00 MCH 28.0 pg (25.7-33.7) 10/27/17 08:00 MCHC 33.3 g/dl (32.0-36.0) 10/27/17 08:00 RDW 14.3 % (11.6-15.6) 10/27/17 08:00 Plt Count 145 K/MM3 (134-434) 10/27/17 08:00 MPV 11.1 fl (7.5-11.1) 10/27/17 08:00 Sodium 139 mmol/L (136-145) 10/27/17 08:00 Potassium 3.7 mmol/L (3.5-5.1) 10/27/17 08:00 Chloride 104 mmol/L (98-107) 10/27/17 08:00 Carbon Dioxide 27 mmol/L (21-32) 10/27/17 08:00 Anion Gap 8 (8-16) 10/27/17 08:00 BUN 12 mg/dL (7-18) 10/27/17 08:00 Creatinine 0.6 mg/dL (0.55-1.02) 10/27/17 08:00 Creat Clearance w eGFR > 60 (>60) 10/27/17 08:00 POC Glucometer 129 UNITS (80-120) 10/27/17 05:24 Random Glucose 95 mg/dL (74-106) 10/27/17 08:00 Calcium 8.5 mg/dL (8.5-10.1) 10/27/17 08:00 Total Bilirubin 0.3 mg/dL (0.2-1.0) D 10/27/17 08:00 AST 11 U/L (15-37) L 10/27/17 08:00 ALT 10 U/L (12-78) L 10/27/17 08:00 Alkaline Phosphatase 69 U/L (45-117) 10/27/17 08:00 Total Protein 6.5 g/dl (6.4-8.2) 10/27/17 08:00 Albumin 3.8 g/dl (3.4-5.0) 10/27/17 08:00 Urine Color Ltyellow 10/27/17 09:35 Urine Appearance Clear 10/27/17 09:35 Urine pH 6.0 (5.0-8.0) 10/27/17 09:35 Ur Specific [place] 1.016 (1.001-1.035) 10/27/17 09:35 Urine Protein Negative (NEGATIVE) 10/27/17 09:35 Urine Glucose (UA) Negative (NEGATIVE) 10/27/17 09:35 Urine Ketones Negative (NEGATIVE) 10/27/17 09:35 Urine Blood Negative (NEGATIVE) 10/27/17 09:35 Urine Nitrite Negative (NEGATIVE) 10/27/17 09:35 Urine Bilirubin Negative (<2.0 mg/dL) 10/27/17 09:35 Urine Urobilinogen 2.0 mg/dL (0.2-1.0) H 10/27/17 09:35 Ur Leukocyte Esterase Negative (NEGATIVE) 10/27/17 09:35 RPR Titer Nonreactive (NONREACTIVE) 10/27/17 08:00 HIV 1&2 Antibody Screen Negative 10/27/17 08:00 HIV P24 Antigen Negative 10/27/17 08:00 Assessment: 10/28/17 09:32 WITHDRAWAL SYMPTOM Plan: CONTINUE DETOX
[2017-10-28] MEDS: TRIAMCINOLONE ACET 0.1% CREAM 15 GM TUBE TP SCH ×2 (10:20→22:40)
[2017-10-28] MEDS: METHADONE HCL 5 MG TABLET (FOR DETOX USE ONLY) PO SCH (10:20)
[2017-10-28] MEDS: PRENATAL VITAMINS W/ FOLIC ACID TABLET (FP) PO SCH (10:21)
[2017-10-28] MEDS: METOPROLOL TARTRATE 25 MG TABLET (FP) PO SCH (10:21)
[2017-10-28] MEDS: hydrALAZINE HCL 50 MG TABLET (FP) PO SCH (10:21)
[2017-10-28] MEDS: PANTOPRAZOLE 40 MG TABLET (FP) PO SCH (10:21)
[2017-10-28] MEDS: QUEtiapine FUMARATE 300 MG TABLET PO SCH (22:13)
[2017-10-28] MEDS: chlordiazePOXIDE 5 MG CAPSULE PO SCH (22:13)
[2017-10-28] MEDS: THIAMINE HCL 100 MG TABLET (FP) PO SCH (22:13)
[2017-10-29] MEDS: chlordiazePOXIDE 5 MG CAPSULE PO SCH ×3 (05:21→17:56)
--- NOTE | 2017-10-29 10:24 | PN ---
BHS Progress Note (SOAP) Subjective: ALERT,IRRITABLE,INTERRUPTED SLEEP,PAIN IN THE BODY Objective: 10/29/17 10:23 Vital Signs Temperature 97.7 F 10/29/17 08:46 Pulse Rate 52 L 10/29/17 08:46 Respiratory Rate 18 10/29/17 08:46 Blood Pressure 96/55 10/29/17 08:46 O2 Sat by Pulse Oximetry (%) Assessment: 10/29/17 10:24 WITHDRAWAL SYMPTOM Plan: CONTINUE DETOX
[2017-10-29] MEDS: METHADONE HCL 5 MG TABLET (FOR DETOX USE ONLY) PO SCH (10:47)
[2017-10-29] MEDS: TRIAMCINOLONE ACET 0.1% CREAM 15 GM TUBE TP SCH (10:47)
[2017-10-29] MEDS: hydrALAZINE HCL 50 MG TABLET (FP) PO SCH (10:48)
[2017-10-29] MEDS: PANTOPRAZOLE 40 MG TABLET (FP) PO SCH (10:49)
[2017-10-29] MEDS: PRENATAL VITAMINS W/ FOLIC ACID TABLET (FP) PO SCH (10:49)
[2017-10-29] MEDS: METOPROLOL TARTRATE 25 MG TABLET (FP) PO SCH (10:49)
[2017-10-29 17:47] VITALS: BP 139/93; PULSE 65; TEMP 97.6
[2017-10-29] MEDS ORDERED: chlordiazePOXIDE HCL 10 MG CAPSULE PO SCH (23:00)
[2017-10-30] MEDS ORDERED: METHADONE HCL 10 MG TABLET (FOR DETOX USE ONLY) PO SCH (10:00)
[2017-10-31] MEDS ORDERED: METHADONE HCL 5 MG TABLET (FOR DETOX USE ONLY) PO SCH (06:00)
== END 2017-10-29 20:03 | disposition left against medical advice (07) | DRG 770 ==
LOC: YASAS 13:20 → Y6N 17:34
PROVIDERS: ADMIT Internal Medicine; ATTEND Internal Medicine
PROC: HZ2ZZZZ Detoxification Services for Substance Abuse Treatment (ICD-10-PCS; principal; 2017-10-26)
DX: F11.23 Opioid dependence with withdrawal (principal); F10.230 Alcohol dependence with withdrawal, uncomplicated; F14.20 Cocaine dependence, uncomplicated; F17.210 Nicotine dependence, cigarettes, uncomplicated; F31.81 Bipolar II disorder; F19.24 Other psychoactive substance dependence with psychoactive substance-induced mood disorder; I10 Essential (primary) hypertension; I45.81 Long QT syndrome; K21.9 Gastro-esophageal reflux disease without esophagitis; L30.8 Other specified dermatitis; J45.909 Unspecified asthma, uncomplicated; Z86.69 Personal history of other diseases of the nervous system and sense organs
CPT/HCPCS: 36415; 80053; 81003; 82962; 85027; 86593; 87389; 93005; 93010